=== PATIENT | female | born 1965 | race Caucasian/White ===

== ENCOUNTER → 2020-03-25 10:25 | Outpatient (CLI) | payer OTHER, SELFPAY ==
--- NOTE | ~2020-03-25 | MM_ITS ---
EXAMINATION: MM screening [facility] w artur HISTORY: Screening TECHNIQUE: Craniocaudal and mediolateral oblique 3-D tomosynthesis images were obtained and synthetic 2-D images were generated. CAD analysis was submitted and interpreted. COMPARISON: Comparison to multiple prior studies sequentially, with oldest reviewed study dated 03/26. BREAST PARENCHYMAL COMPOSITION: There are scattered areas of fibroglandular density. FINDINGS: There is no evidence of suspicious mass, calcification, or architectural distortion to sugg est malignancy in either breast. There has been no suspicious interval change. IMPRESSION: 1. No mammographic evidence of malignancy. 2. Recommend routine screening mammography in one year. BI-RADS Category 1: Negative Reviewed, dictated and finalized at location A.
== END ==
PROVIDERS: PCP Family Medicine; Visit Provider Obstetrics & Gynecology Gynecology
DX: Z12.31 Encounter for screening mammogram for malignant neoplasm of breast (principal)
CPT/HCPCS: 77063; 77067

== ENCOUNTER → 2021-04-01 13:42 | Outpatient (CLI) | payer OTHER, SELFPAY ==
--- NOTE | ~2021-04-01 | MM_ITS ---
EXAMINATION: MM screening [facility] BI w artur HISTORY: Screening mammogram TECHNIQUE: Craniocaudal and mediolateral oblique 3-D tomosynthesis images were obtained and synthetic 2-D images were generated. CAD analysis was submitted and interpreted. COMPARISON: 03/25/2020, 12/16/2018, 12/01/2018 BREAST PARENCHYMAL COMPOSITION: There are scattered areas of fibroglandular density. FINDINGS: There is no evidence of suspicious mass, calcification, or architectural distortion to sugg est malignancy in either breast. There has been no suspicious interval change. IMPRESSION: 1. No mammographic evidence of malignancy. 2. Recommend routine screening mammography in one year. BI-RADS Category 1: Negative Reviewed, dictated and finalized at location A.
== END ==
PROVIDERS: PCP Internal Medicine; Visit Provider Obstetrics & Gynecology
DX: Z12.31 Encounter for screening mammogram for malignant neoplasm of breast (principal)
CPT/HCPCS: 77063; 77067

== ENCOUNTER 2022-01-05 10:20 | Outpatient (CLI) | payer OTHER, SELFPAY ==
--- NOTE | ~2022-01-05 | XR_ITS ---
EXAMINATION: XR toe 1st LT min 2V DATE: 01/05/2022 11:28 INDICATION: Gout TECHNIQUE: Dorsal plantar, lateral and oblique views of the left great toe were obtained. COMPARISON: 05/02/2012 FINDINGS: Alignment is normal. No fracture. Interval progression of now mild to moderate osteoarthritis at the first metatarsophalangeal joint. Mild osteoarthritis at a few of the tarsal metatarsal and interphala ngeal joints. No erosions identified. Soft tissues are unremarkable. IMPRESSION: Progression of now mild to moderate osteoarthritis at the first metatarsophalangeal joint. No erosion s. Reviewed, dictated and finalized at location B. IMPRESSION: Progression of now mild to moderate osteoarthritis at the first metatarsophalan geal joint. No erosions.
--- NOTE | ~2022-01-05 | XR_ITS ---
EXAMINATION: XR chest 2V 01/05/2022 11:28 INDICATION: Shortness of breath. High cholesterol. PROCEDURE: 2 view chest COMPARISON: No prior studies for comparison FINDINGS: The lungs are clear. The cardiomediastinal silhouette is within normal limits. There are no pleural effusions. There is no pneumothorax suspected. IMPRESSION: 1: NO ACUTE CARDIOPULMONARY DISEASE. Reviewed, dictated and finalized at location A.
== END 2022-01-05 10:21 ==
PROVIDERS: PCP Internal Medicine; Visit Provider Internal Medicine
DX: R06.02 Shortness of breath (principal); E78.00 Pure hypercholesterolemia, unspecified; M19.072 Primary osteoarthritis, left ankle and foot
CPT/HCPCS: 71046; 73660

== ENCOUNTER 2022-04-03 09:49 | Outpatient (CLI) | payer OTHER, SELFPAY ==
--- NOTE | ~2022-04-03 | MM_ITS ---
EXAMINATION: MM screening [facility] w artur HISTORY: Screening mammogram TECHNIQUE: Craniocaudal and mediolateral oblique 3-D tomosynthesis images were obtained and synthetic 2-D images were generated. CAD analysis was submitted and interpreted. COMPARISON: 04/01/2021, 10/24/2019 bilateral screening mammogram examinations BREAST PARENCHYMAL COMPOSITION: There are scattered areas of fibroglandular density. FINDINGS: There is no evidence of suspicious mass, calcification, or architectural distortion to sugg est malignancy in either breast. There has been no suspicious interval change. IMPRESSION: 1. No mammographic evidence of malignancy. 2. Recommend routine screening mammography in one year. BI-RADS Category 1: Negative Reviewed, dictated and finalized at location A.
== END 2022-04-03 09:50 ==
PROVIDERS: PCP Student in an Organized Health Care Education/Training Program; Visit Provider Obstetrics & Gynecology Gynecology
DX: Z12.31 Encounter for screening mammogram for malignant neoplasm of breast (principal)
CPT/HCPCS: 77063; 77067

== ENCOUNTER 2022-05-10 14:25 | Observation (INO) | payer OTHER, SELFPAY ==
[2022-05-10] VITALS (31 sets, daily range): BP systolic 84–111; BP diastolic 57–87; PULSE 87–116; RESP 9–26; TEMP 36.6–36.8; O2SAT 96–99; BMI 27.8
--- NOTE | ~2022-05-10 | XR_ITS ---
XR chest 1V portable DATE: 05/10/2022 15:00 INDICATION: Left chest pain radiating to back. Chills, body aches. TECHNIQUE: Portable AP chest on 05/10/2022 at 1455 hours COMPARISON: 01/05/2022 portable AP chest FINDINGS: Patchy left lower lung infiltrate, new since 01/05/2022. The lungs otherwise appear clear. No pleural effusion or pulmonary vascular congestion or pneumothorax. Normal heart size. No hilar or mediastinal enlargement. Diffuse osteopenia. IMPRESSION: Mild patchy left lower lung infiltrate Reviewed, dictated and finalized at location A.
--- NOTE | 2022-05-10 14:28 | ECG_ITS ---
Measurements Intervals [place] Rate: 111 P: 2 UT: 150 QRS: -17 QRSD: 90 T: 261 QT: 297 QTc: 404 Interpretive Statements SINUS TACHYCARDIA VENTRICULAR PREMATURE COMPLEX DELAYED PRECORDIAL R/S TRANSITION ST-T WAVE ABNORMALITY IN ANTEROLAT/INF LEADS- CONSIDER ISCHEMIA ABNORMAL ECG NO PREVIOUS ECG AVAILABLE FOR COMPARISON Electronically Signed On 05-10-2022 18:51:50 CDT by Hugo Mendez D.O.
--- NOTE | 2022-05-10 14:53 | ECG_ITS ---
Measurements Intervals [place] Rate: 105 P: 9 SC: 154 QRS: -1 QRSD: 85 T: -64 QT: 296 QTc: 392 Interpretive Statements SINUS TACHYCARDIA ST-T WAVE ABNORMALITY IN ANT/INF LEADS- CONSIDER ISCHEMIA ABNORMAL ECG COMPARED TO ECG 05/10/2022 14:32:51 NO SIGNIFICANT CHANGES Electronically Signed On 05-10-2022 18:53:05 CDT by Hugo Mendez D.O.
[2022-05-10 15:00] LABS: Basophils Absolute Auto 0.1 K/mm3 (0.0-0.1); Basophils Percent Auto 0.7 % (0.2-1.2); Eosinophils Absolute Auto 0.5 K/mm3 (0-0.3); Eosinophils Percent Auto 3.4 % (0-4.4); Hematocrit 41.4 % (37.0-47.0); Hemoglobin 13.5 g/dL (12.0-15.0); Immature Granulocyte Absolute 0.09 K/mm3 (0.00-0.031); Immature Granulocyte Percent A 0.7 % (0-0.5); Lymphocytes Absolute Auto 1.63 K/mm3 (0.9-3.2); Lymphocytes Percent Auto 11.8 % (18.3-44.2); Mean Corpuscular HGB Conc 32.6 g/dl (32-36); Mean Corpuscular Hemoglobin 27.3 pg (26-34); Mean Corpuscular Volume 83.8 fl (80-100); Mean Platelet Volume 10.8 fl (7.4-10.4); Monocytes Absolute Auto 0.8 K/mm3 (0.1-0.6); Monocytes Percent Auto 6.1 % (2.6-8.5); Neutrophils Absolute Auto 10.7 K/mm3 (1.3-6.7); Neutrophils Percent Auto 77.3 % (45.5-73.1); Platelet Count Result 150 k/mm3 (150-375); Red Blood Count 4.94 M/mm3 (4.2-5.4); Red Cell Distribution Width 13.9 % (11.5-14.5); White Blood Count 13.8 K/mm3 (4.5-10.0)
[2022-05-10 15:01] LABS: INR 1.2; Prothrombin Time 14.9 Seconds (11.1-14.7)
[2022-05-10 15:02] LABS: Partial Thromboplastin Time 29.9 SECONDS (22.3-36.8)
[2022-05-10 15:05] LABS: Alanine Aminotransferase 21 U/L (6-35); Albumin Level 4.7 g/dL (3.5-5.1); Alkaline Phosphatase 98 U/L (38-126); Anion Gap 11 mmol/L (8-16); Aspartate Amino Transferase 19 U/L (14-36); Bilirubin,Total 0.6 mg/dL (0.2-1.3); Blood Urea Nitrogen 13 mg/dL (7-17); Calcium 9.1 mg/dL (8.4-10.2); Carbon Dioxide 22 mmol/L (22-30); Chloride 104 mmol/L (98-107); Estimated CRCL calculation 63 ml/min; Estimated Glomerular Filt Rate > 60; Glucose 137 mg/dL (65-110); Lipase 150 U/L (23-300); Potassium 3.9 mmol/L (3.4-5.0); Sodium 137 mmol/L (137-145)
--- NOTE | 2022-05-10 15:10 | ED.GENADULT ---
HPI - General Adult General Chief complaint: Chest Pain Stated complaint: chest pain that began yesterday evening Time Seen by Provider: 05/10/22 14:45 History of Present Illness HPI narrative: This is a 57-year-old female present to ED with a chief complaint of chest pain. Patient says the pain started last night around 6:00 p.m.. She describes it as a pressure underneath her left breast which radiates to her back and right jaw. She says that it is comes and goes in intensity. It has been improving. She has never experienced pain like this before. There are no exacerbating or alleviating factors. She denies vomiting or diaphoresis or exertional component. She also notes that she started to have flu-like symptoms including fever and chills and generally feeling unwell yesterday. She has had a recent COVID exposure. She denies lower extremity edema or history of heart failure. Related Data Home Medications Medication Instructions Recorded Confirmed albuterol sulfate 90 mcg/actuation 1 inhalation inhalation Q4H 06/28/19 02/09/22 aerosol inhaler (ProAir HFA) magnesium 200 mg tablet 400 mg PO BID 07/05/20 02/09/22 cholecalciferol (vitamin D3) 10 10 mcg PO WEEKLY 02/09/22 02/09/22 mcg (400 unit) capsule evolocumab 140 mg/mL subcutaneous 140 mg subcut WEEKLY 02/09/22 02/09/22 pen injector (Repemelina Vásquez) Allergies Allergy/AdvReac Type Severity Reaction Status Date / Time No Known Allergies Allergy Verified 05/10/22 15:38 Review of Systems Review of Systems: CONSTITUTIONAL: Denies night sweats. EYES: No eye pain ENT: Denies rhinorrhea CARDIOVASCULAR: Denies palpitations RESPIRATORY: Denies hemoptysis GASTROINTESTINAL: Denies hematemesis GENITOURINARY: Denies hematuria. SKIN: Denies rash MUSCULOSKELETAL: Denies myalgia. NEUROLOGIC: Denies weakness. PSYCHIATRIC: Denies delusions [facility] Past Medical History Medical History (Updated 05/10/22 @ 16:32 by Barbara Willams PA-C) Anxiety Hypothyroidism Migraine Mixed hyperlipidemia Uterine polyp Surgical History Surgical History (Updated 05/10/22 @ 16:30 by Barbara Willams PA-C) History of hernia repair Family History Family History Father Family history of mental disorder Family history of malignant neoplasm of urinary bladder Sibling Family history of mental disorder Mother Family history of cardiovascular disease Family history of Alzheimer's disease Grandparent Family history of cardiovascular disease Cerebrovascular accident Other Hypertension Social History Social History Social History: Surrogate medical decision maker: Jose Yuen, spouse. Code status: Full code. Smoking packs per day: 0.5 Smoking cigarettes per day: 10.0 Years smoked: 8 Smoking pack-years: 4.00 Smoking status: Never smoker Second hand tobacco smoke exposure: No Smoking end date: 08/16/91 Alcohol intake: never Additional living arrangements comments: Lives in [place]. 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 Exam Narrative: APPEARANCE: patient is sitting in bed. She appears slightly uncomfortable. Head atraumatic. EYES: PERRLA/EOMI, NOSE: Normal no drainage NECK: Supple, Trachea midline RESPIRATORY: CTAB, No increased work of breathing. CARDIOVASCULAR: S1S2 appreciated , no peripheral edema ABDOMINAL: Soft, nontender, nondistended, MUSCULOSKELETAl: No obvious deformities NEURO: Alert. Moving 4/4 extremities SKIN:: Warm, dry. Normal color PSYCHIATRIC: Normal affect Course Vital Signs Vital signs: Vital Signs Temperature 98.2 F 05/10/22 14:32 Pulse Rate 114 H 05/10/22 14:32 Respiratory Rate 18 05/10/22 14:32 Blood Pressure 105/71 05/10/22 14:32 Pulse Oximetry 97 05/10/22 14:32 Oxygen Delivery Room Air 05/10/22 14:32
[2022-05-10 15:16] LABS: Troponin I < 0.012 ng/mL (0.000-0.034)
[2022-05-10] MEDS: ASPIRIN 81 MG CHEWABLE TABLET 324 MG PO (15:21)
[2022-05-10 15:40] LABS: Alanine Aminotransferase 21 U/L (6-35); Albumin Level 4.5 g/dL (3.5-5.1); Alkaline Phosphatase 85 U/L (38-126); Anion Gap 10 mmol/L (8-16); Aspartate Amino Transferase 21 U/L (14-36); Bilirubin,Total 0.7 mg/dL (0.2-1.3); Blood Urea Nitrogen 14 mg/dL (7-17); Carbon Dioxide 22 mmol/L (22-30); Chloride 105 mmol/L (98-107); Estimated CRCL calculation 72 ml/min; Estimated Glomerular Filt Rate > 60; Glucose 130 mg/dL (65-110); Lipase 108 U/L (23-300); Sodium 137 mmol/L (137-145)
[2022-05-10 15:48] LABS: NT Pro B Type Natriuretic Pept 532 pg/mL (5-100); Troponin I < 0.012 ng/mL (0.000-0.034)
[2022-05-10 16:01] LABS: SARS-CoV-2 RNA PCR Negative
--- NOTE | 2022-05-10 16:35 | PC.NURSE ---
VRBO ZOFRAN 4MG PER ERP
[2022-05-10] MEDS: ONDANSETRON INJ 4 MG/2 ML VIAL IV PUSH (16:42)
--- NOTE | 2022-05-10 16:45 | PM.IMHP ---
H&P: HPI History of Present Illness Date/Time: 05/10/22 16:45 <Barbara Willams PA-C - Last Filed: 05/10/22 22:18> Chief Complaint: Chest pain. <Barbara Willams PA-C - Last Filed: 05/10/22 22:18> Narrative: This is a pleasant 57-year-old female with dyslipidemia and hypothyroidism who presented to the ED from home for evaluation of chest pain which started last evening at 18:00. She describes a pressure like discomfort just below the left breast. And radiates somewhat into the back and to the right side of her jaw. It seems to come and go without pattern and she has not noticed any significant aggravating or alleviating factors. With further questioning, she has not felt well since yesterday with generalized malaise, chills, subjective fever, decreased appetite, slight nausea, and some loose stools. She was afebrile on arrival to the emergency department. Her initial troponin was normal though EKG did demonstrate ST and T-wave abnormalities in the anterior lateral and inferior leads concerning for ischemia. Per protocol she was given aspirin 324 milligrams and a repeat EKG thereafter demonstrated some improvement in ST segment changes. Chest x-ray showed mild patchy left lower lobe infiltrate. Last week she was on a camping trip and another camper had COVID however she tested negative for SARS-CoV-2 by PCR. She is being admitted in this setting for IV antibiotics and consultation with Cardiology given her abnormal EKG. She has no history of coronary artery disease but did see Dr. Mendez at one point in time for evaluation of what sounds like frequent PVCs. She has not had exertional chest pain however she reports getting winded when walking up the hill by her home, something that she would probably not typically cause her to feel short of breath. <Barbara Willams PA-C - Last Filed: 05/10/22 22:18> Review of Systems Review of Systems: Twelve systems were reviewed. No headache. She had a sore throat last week but that has resolved. No significant sinus congestion. She has not had any exertional chest pain. No syncope or near syncope. No sweats. She has had some nausea but no vomiting. She is intolerant to statins and is now on Repatha. With statins and with the Repatha she has brain fog and difficulties concentrating though that seems less with Repatha. Except as documented, all other systems were reviewed and negative. <Barbara Willams PA-C - Last Filed: 05/10/22 22:18> [facility] Past Medical History Medical History: Medical History (Updated 05/10/22 @ 16:32 by Barbara Willams PA-C) Anxiety Hypothyroidism Migraine Mixed hyperlipidemia Uterine polyp <Barbara Willams PA-C - Last Filed: 05/10/22 22:18> Surgical History Surgical History: Surgical History (Updated 05/10/22 @ 16:30 by Barbara Willams PA-C) History of hernia repair <Barbara Willams PA-C - Last Filed: 05/10/22 22:18> Family History Family History: Family History Father Family history of mental disorder Family history of malignant neoplasm of urinary bladder Sibling Family history of mental disorder Mother Family history of cardiovascular disease Family history of Alzheimer's disease Grandparent Family history of cardiovascular disease Cerebrovascular accident Other Hypertension <Barbara Willams PA-C - Last Filed: 05/10/22 22:18> Social History Social History: Social History (Updated 05/10/22 @ 16:51 by Barbara Willasm PA-C) Social History: Surrogate medical decision maker: Jose Harveyjames, spouse. Code status: Full code. Smoking packs per day: 0.5 Smoking cigarettes per day: 10.0 Years smoked: 7 Smoking pack-years: 3.50 Smoking status: Former smoker Tobacco type: cigarettes Second hand tobacco smoke exposure: No Smoking end date: 08/16/91 Alcohol intake: never Substance use: never Additional l
[2022-05-10 17:49] LABS: Appearance Urine Clear (Clear); Bilirubin Urine Negative (Negative); Blood Urine Negative (Negative); Color Urine Yellow (Yellow); Glucose Urine UA Negative (Negative); Ketones Urine Negative (Negative); Leukocyte Esterase Ur 2+ LEU/UL (Negative); Nitrate Urine Negative (Negative); Protein Urine Trace mg/dL (Negative); Specific Grav Ur >= 1.030 (1.001-1.035); Urobilinogen Urine 0.2 mg/dL (<2.0)
[2022-05-10 17:53] LABS: Add Urine Microscopic? YES; Bacteria Urine Trace /hpf; Mucus Urine Rare /lpf; Squamous Epithelial Cell Urine Few /hpf (Few); WBC Urine 16-20 /hpf
[2022-05-10 18:29] LABS: Troponin I < 0.012 ng/mL (0.000-0.034)
--- NOTE | 2022-05-10 20:34 | PM.CNCAR ---
Assessment and Plan Assessment and plan (1) Left lower lobe pneumonia: Code(s): J18.9 - Pneumonia, unspecified organism Status: Acute Assessment and Plan: On antibiotics as per hospitalist. (2) Abnormal EKG: Code(s): R94.31 - Abnormal electrocardiogram [ECG] [EKG] Status: Acute Assessment and Plan: ST abnormality. Troponin unremarkable x 2 sets. Obtain echo. (3) Mixed hyperlipidemia: Code(s): E78.2 - Mixed hyperlipidemia Status: Acute Assessment and Plan: On Repatha injections. History of Present Illness History of Present Illness Consult date/time: 05/10/22 20:34 Consult reason: Other (abnormal ekg) Reason For Visit: pneumonia Narrative: 57 yr old woman who is my regular cardiology patient presented to ER with malaise. She has a history of dyslipidemia (intolerant of Simvastatin due to mental fogginess and some myalgia), anxiety. Reports for last few days she had subjective fevers/chills, muscle aches, weakness. Denies cough, chest pain, sob, orthopnea, PND, edema, dizziness. Reports she can walk 3 miles without any problems. Walking up a flight of stairs does cause HARVEY. Rare palpitations. Cardiovascular Procedures Echo/MUGA:: 04/22/21 Echo: EF 65%, grade I diastolic dysfunction , trace MR. Electrophysiology:: 02/09/22 EKG:Sinus rhythm with PVC's, borderline T wave in ant/inf leads. Review of Systems Review of Systems: All systems reviewed & are unremarkable except as noted in HPI and below Constitutional: Constitutional: Reports as per HPI, Reports chills, Reports fatigue, Reports fever(s) and Reports malaise Cardiovascular: Cardiovascular: Reports as per HPI, Denies chest pain, Denies irregular heart rhythm, Denies leg edema and Denies lightheadedness Respiratory: Respiratory: Reports as per HPI and Denies dyspnea Gastrointestinal: Gastrointestinal: Reports as per HPI and Denies abdominal pain Genitourinary: Genitourinary: Reports as per HPI and Denies dysuria Musculoskeletal: Musculoskeletal: Reports as per HPI Neurologic: Reports as per HPI, Denies dizziness and Denies syncope [facility] Past Medical History Medical History (Updated 05/10/22 @ 16:32 by Barbara Willams PA-C) Anxiety Hypothyroidism Migraine Mixed hyperlipidemia Uterine polyp Surgical History Surgical History (Updated 05/10/22 @ 16:30 by Barbara Willams PA-C) History of hernia repair Family History Family History Father Family history of mental disorder Family history of malignant neoplasm of urinary bladder Sibling Family history of mental disorder Mother Family history of cardiovascular disease Family history of Alzheimer's disease Grandparent Family history of cardiovascular disease Cerebrovascular accident Other Hypertension Social History Social History (Updated 05/10/22 @ 16:51 by Barbara Willams PA-C) Social History: Surrogate medical decision maker: Jose Yuen, spouse. Code status: Full code. Smoking packs per day: 0.5 Smoking cigarettes per day: 10.0 Years smoked: 8 Smoking pack-years: 4.00 Smoking status: Never smoker Second hand tobacco smoke exposure: No Smoking end date: 08/16/91 Alcohol intake: never Additional living arrangements comments: Lives in [place] with and a cat. 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 Meds Home Medications and Allergies Home Medications Medication Instructions Recorded Confirmed Type albuterol sulfate 90 mcg/actuation 1 inhalation inhalation Q4H 06/28/19 02/09/22 History aerosol inhaler (ProAir HFA) levothyroxine 25 mcg tablet 25 mcg PO DAILY #90 tabs 04/08/20 02/09/22 Rx magnesium 200 mg tablet 400 mg PO BID 07/05/20 02/09/22 History zolmitriptan 5 mg tablet (Zomig) 5 mg PO .COMPLEX #54 tabs 11/04/20 02/09/22 Rx cholecalciferol (vitam
--- NOTE | 2022-05-10 21:52 | ADMGEN ---
This patient, Liss Yuen, was admitted to IMU Room 206-01 on 05/10/22 at 1999. Patient/family oriented to hospital policies and general routines including ID bracelet, bed and alarms, visiting hours, pain management, procedures, bathroom and other care routines, personal items, smoking policy, room service/diet, and visiting hours. Information on how to activate the Rapid Response Team has been discussed. Patient/Family are encouraged to report perceived risks to care and to ask questions if they do not understand what they are told or what they should do.
[2022-05-10 21:58] LABS: Troponin I < 0.012 ng/mL (0.000-0.034)
[2022-05-10] MEDS: IBUPROFEN 600 MG TABLET PO (22:04)
[2022-05-11] VITALS: PULSE 78
--- NOTE | 2022-05-11 | ECHO_ITS ---
Patient Info Name: Liss Yuen Age: 57 years : 1965 Gender: Female Ht: 63 in Wt: 156 lbs BSA: 1.79 m2 HR: 72 bpm BP: 99 / 61 mmHg Technical Quality: Good Exam Date: 05/11/2022 10:31 AM Exam Location: [facility] Pulmonary Patient Status: Outpatient Admit Date: 05/10/2022 Staff Ordering Physician: Hugo Mendez DO Purchasing Administrative Assistant: Froylan Clark RDCS, RT Attending Provider: Sonia Billy MD Referring Physician: Andrea STEWART; Exam Type: CA echo doppler color flow Study Info Indications R07.9 - Chest pain, unspecified Complete two-dimensional, color flow and Doppler transthoracic echocardiogram is performed. Strain analysis performed. Summary 1. Complete two-dimensional, color flow and Doppler transthoracic echocardiogram is performed. 2. Left ventricular chamber dimension is normal. 3. Left ventricular systolic function is normal, estimated at 60-65%. 4. The left ventricular diastolic function is grade I diastolic dysfunction. 5. E/e' 5 is not elevated. 6. Global longitudinal strain is normal at -19.5%. 7. No pulmonary hypertension, estimated pulmonary arterial systolic pressure is 24 mmHg. Left Ventricle E/e' 5 is not elevated. Global longitudinal strain is normal at -19.5%. Left ventricular chamber dimension is normal. Left ventricular systolic function is normal, estimated at 60-65%. The left ventricular diastolic function is grade I diastolic dysfunction. Right Ventricle Right ventricular chamber dimension is normal. Right ventricular systolic function is normal. Left Atria Left atrial chamber dimension is normal. Right Atria Right atrial chamber dimension is normal. Aortic Valve The aortic valve is probable trileaflet. There is no aortic valve stenosis. There is no aortic valve regurgitation. Pulmonic Valve There is no pulmonic regurgitation. Mitral Valve There is no mitral valve stenosis. There is no mitral valve regurgitation. Tricuspid Valve There is no tricuspid valve regurgitation. No pulmonary hypertension, estimated pulmonary arterial systolic pressure is 24 mmHg. Pericardium/Pleural There is no pericardial effusion. Inferior Vena Cava Normal inferior vena cava with >50% collapse upon inspiration consistent with normal right atrial pressure, 5 mmHg. Aorta The aortic root size at the sinus of Valsalva is normal. Left Ventricular Outflow Tract Name Value Normal LVOT 2D LVOT Diameter 2.0 cm LVOT Doppler LVOT Peak Gradient 3 mmHg LVOT Mean Gradient 2 mmHg LVOT VTI 20 cm LVOT VTI/AV VTI Ratio 0.8 LVOT Stroke Volume 63 ml LVOT CO 4.7 l/min LVOT CI 2.6 l/min/m2 Mitral Valve Name Value Normal MV Doppler
[2022-05-11 02:00] VITALS: PULSE 64
[2022-05-11 04:00] VITALS: BP 99/61; PULSE 60; PULSE 80; RESP 18; TEMP 36.7; O2SAT 99
[2022-05-11 05:47] LABS: Anion Gap 6 mmol/L (8-16); Blood Urea Nitrogen 15 mg/dL (7-17); Calcium 8.6 mg/dL (8.4-10.2); Carbon Dioxide 27 mmol/L (22-30); Chloride 103 mmol/L (98-107); Estimated CRCL calculation 64 ml/min; Estimated Glomerular Filt Rate > 60; Glucose 111 mg/dL (65-110); Magnesium 2.5 mg/dL (1.6-2.3); Potassium 4.2 mmol/L (3.4-5.0); Sodium 136 mmol/L (137-145)
[2022-05-11 06:00] VITALS: PULSE 65
[2022-05-11] MEDS: LEVOTHYROXINE SODIUM 25 MCG TABLET PO (06:27)
--- NOTE | 2022-05-11 07:52 | PM.PNCARD ---
Progress Note: A&P Assessment and Plan (1) Left lower lobe pneumonia: Code(s): J18.9 - Pneumonia, unspecified organism Status: Acute Assessment and Plan: On antibiotics as per hospitalist. (2) Abnormal EKG: Code(s): R94.31 - Abnormal electrocardiogram [ECG] [EKG] Status: Acute Assessment and Plan: Symptoms do no suggests ACS. ST abnormality. Troponin unremarkable x 3 sets. Obtain echo. If echo is unremarkable no further cardiac workup at this time as she is being treated for pneumonia. May need outpatient stress testing. (3) Mixed hyperlipidemia: Code(s): E78.2 - Mixed hyperlipidemia Status: Acute Assessment and Plan: On Repatha injections. Subjective Date/time seen: 05/11/22 07:52 Interval history: Reports sore throat, headache and cough. No chest pain or sob. Exam Const: General: cooperative, healthy appearing and comfortable Resp: Auscultation: clear to auscultation bilaterally, no crackles, no rales, no rhonchi and no wheezes Cardio: Jugular venous distension: no JVD Rate: regular rate Rhythm: regular rhythm Heart sounds: no murmurs Peripheral pulses: dorsalis pedis present GI: GI Palp: No abdominal tenderness and Yes Soft to palpation Neuro: General: oriented to person, oriented to place and oriented to time Extrem: Right lower extremity: no edema Left lower extremity: no edema Objective Data Vital Signs Vital Signs: Vital Signs - 24 hr 05/10/22 14:32 05/10/22 15:09 05/10/22 15:16 Temperature 98.2 F Pulse Rate 114 H 110 H Respiratory Rate 18 Blood Pressure 105/71 Pulse Oximetry 97 96 Oxygen Delivery Room Air Room Air 05/10/22 15:18 05/10/22 14:49 05/10/22 14:50 Temperature Pulse Rate 113 H 115 H Respiratory Rate 19 15 Blood Pressure 111/87 Pulse Oximetry 96 Oxygen Delivery Room Air 05/10/22 15:00 05/10/22 15:01 05/10/22 15:15 Temperature Pulse Rate 107 H 116 H 109 H Respiratory Rate 18 26 H 12 Blood Pressure 108/86 111/79 Pulse Oximetry Oxygen Delivery 05/10/22 15:16 05/10/22 15:30 05/10/22 15:31 Temperature Pulse Rate 111 H 104 H 106 H Respiratory Rate 17 9 L 13 Blood Pressure 106/79 Pulse Oximetry Oxygen Delivery 05/10/22 15:45 05/10/22 15:46 05/10/22 16:00 Temperature Pulse Rate 106 H 106 H 102 H Respiratory Rate 12 12 9 L Blood Pressure 106/74 106/76 Pulse Oximetry Oxygen Delivery 05/10/22 16:01 05/10/22 16:15 05/10/22 16:16 Temperature Pulse Rate 103 H 100 100 Respiratory Rate 10 L 17 24 H Blood Pressure 103/73 Pulse Oximetry 96 Oxygen Delivery 05/10/22 16:30 05/10/22 16:45 05/10/22 17:00 Temperature Pulse Rate 99 101 H 93 Respiratory Rate 15 18 16 Blood Pressure 98/68 L 89/70 L 84/68 L Pulse Oximetry 97 98 97 Oxygen Delivery 05/10/22 17:16 05/10/22 17:45 05/10/22 18:15 Temperature Pulse Rate 93 101 H 91 Respiratory Rate 9 L 13 25 H Blood Pressure 100/72 95/68 L 92/62 L Pulse Oximetry 98 98 98 Oxygen Delivery 05/10/22 18:30 05/10/22 18:45 05/10/22 19:00 Temperature Pulse Rate 96 93 92 Respiratory Rate 16 13 15 Blood Pressure 90/65 L 92/62 L 100/85 Pulse Oximetry 98 96 Oxygen Delivery 05/10/22 19:01 05/10/22 19:24 05/10/22 20:00 Temperature 97.9 F Pulse Rate 95 92 96 Respiratory Rate 16 17 18 Blood Pressure 93/71 L Pulse Oximetry 98 Oxygen Delivery 05/10/22 20:00 05/10/22 23:26 05/10/22 22:00 Temperature 98.0 F Pulse Rate 87 89 Respiratory Rate 18 Blood Pressure 92/57 L Pulse Oximetry 99 Oxygen Delivery Room Air 05/10/22 20:00 05/11/22 00:00 05/11/22 00:00 Temperature Pulse Rate 95 78 Respiratory Rate Blood Pressure Pulse Oximetry Oxygen Delivery Room Air 05/11/22 02:00 05/11/22 04:00 05/11/22 04:00 Temperature 98.0 F Pulse Rate 64 80 60 Respiratory Rate 18 Blood Pressure 99/61 L Pulse Oximetry 99 Oxygen De
[2022-05-11 08:00] VITALS: BP 107/76; PULSE 66; PULSE 69; RESP 16; TEMP 36.5; O2SAT 97
[2022-05-11] MEDS: PARoxetine 5 MG TABLET PO (09:31)
[2022-05-11] MEDS: MAGNESIUM OXIDE 400 MG TABLET PO (09:31)
[2022-05-11] MEDS: IBUPROFEN 400 MG TABLET 800 MG PO (11:19)
--- NOTE | 2022-05-11 11:46 | PM.DS ---
DS: Admitting Diagnosis Discharge Date May 11, 2022 Admitting Diagnosis pneumonia DS: Discharge Diagnosis Discharge Diagnosis (1) Chest pain: Code(s): R07.9 - Chest pain, unspecified Status: Acute Assessment and Plan: no further workup needed (2) Abnormal EKG: Code(s): R94.31 - Abnormal electrocardiogram [ECG] [EKG] Status: Acute Assessment and Plan: Plan is as detailed above. (3) Left lower lobe pneumonia: Code(s): J18.9 - Pneumonia, unspecified organism Status: Acute Assessment and Plan: She has been started on azithromycin ceftriaxone for community-acquired pneumonia. Sputum to be attempted for culture. Check urinary antigens. SARS-CoV-2 by PCR was negative. (4) Mixed hyperlipidemia: Code(s): E78.2 - Mixed hyperlipidemia Status: Acute Assessment and Plan: She is on Repatha, last injection was several days ago. (5) Hypothyroidism: Qualifiers: Hypothyroidism type: unspecified Qualified Code(s): E03.9 - Hypothyroidism, unspecified Code(s): E03.9 - Hypothyroidism, unspecified Status: Acute Assessment and Plan: Continue levothyroxine and check TSH. (6) Anxiety: Code(s): F41.9 - Anxiety disorder, unspecified Status: Acute DS: Summary Hospital Course Hospital Course: patient was admitted for chest pressure and pneumonia. Echocardiogram was read as negative no further workup was indicated by Cardiology. Patient will be sent home on Omnicef. Time Spent with Patient Time attestation: Total time spent providing and/or coordinating discharge services: Exam Narrative: General: Mildly ill but nontoxic-appearing female sitting up in bed. Weight: 71.2 kilograms. BMI: 27.8. HEENT: Wearing glasses. PERRL, EOMI. Sclera anicteric. Tacky mucous membranes. Neck: Supple. No lymphadenopathy or JVD. Respiratory: Respirations are nonlabored and she is speaking in full sentences. Occasional dry cough. Bronchial breath sounds at the left base. Cardiovascular: Regular rate and rhythm with S1-S2. Chest: No tenderness to palpation over the chest wall. Gastrointestinal: Abdomen is soft, nontender, and nondistended with positive bowel sounds. Skin: Warm and dry. No rash or lesions on limited exam. Extremities: No cyanosis, clubbing, or edema. Radial and pedal pulses intact. No palpable knots or cords. Negative Aung sign bilaterally. Neurological: Alert. Cranial nerves 2-12 are grossly intact. No gross focal deficits to casual conversation. Psychiatric: Pleasant and cooperative with normal mood and affect. Judgment and insight intact. DS: Data Data Completed and Pending Labs on day of discharge: Labs from last 24 hours 05/11/22 05/11/22 05/10/22 04:28 04:28 23:07 WBC RBC Hgb Hct MCV MCH MCHC RDW Plt Count MPV Immature Gran % (Auto) Neut % (Auto) Lymph % (Auto) [place] % (Auto) Eos % (Auto) Baso % (Auto) Lymph # (Auto) [place] # (Auto) Eos # (Auto) Baso # (Auto) Abs Immat Gran (auto) Absolute Neuts (auto) Absolute Nucleated RBC Nucleated RBC % % Immature Plt Fraction PT INR APTT D-Dimer Sodium 136 L Potassium 4.2 Chloride 103 Carbon Dioxide 27 Anion Gap 6 L BUN 15 Creatinine 0.80 Estim Creat Clear Calc 64 Estimated GFR > 60 Glucose 111 H Calcium 8.6 Magnesium 2.5 H Total Bilirubin AST ALT Alkaline Phosphatase Troponin I NT-Pro-B Natriuret Pep Total Protein Albumin Lipase TSH (Reflex) 1.410 Urine Color Urine Appearance Urine pH Ur Specific [place] Urine Protein Urine Glucose (UA) Urine Ketones Ur Blood (Man) Urine Nitrate Urine Bilirubin Urine Urobilinogen Leukocyte Esterase Rfl Urine RBC Urine WBC Ur Squamous Epith Cells Urine Bacteria Ur
[2022-05-11 12:00] VITALS: BP 100/75; PULSE 73; RESP 16; TEMP 36.9; O2SAT 98
[2022-05-13 16:03] LABS: Pneumococcal Antigen Urine Not Detected (Not Detected)
[2022-05-14 16:43] LABS: Legionella pneumophila Ag Ur Not Detected (Not Detected)
[2022-05-14 17:50] LABS: Mycoplasma IgM Antibody Titer 37 U/mL (<770)
== END 2022-05-11 12:28 | disposition home or self-care (01) ==
LOC: ANHED 16:34 → ANHIMU 19:50
PROVIDERS: Emergency Medicine; Physician Assistant; Admitting Provider Family Medicine; Emergency Provider Emergency Medicine; PCP Student in an Organized Health Care Education/Training Program; Visit Provider Chiropractor
DX: J18.9 Pneumonia, unspecified organism (principal); R07.9 Chest pain, unspecified; R94.31 Abnormal electrocardiogram [ECG] [EKG]; E78.2 Mixed hyperlipidemia; E03.9 Hypothyroidism, unspecified; F41.9 Anxiety disorder, unspecified; Z87.891 Personal history of nicotine dependence; Z20.822 Contact with and (suspected) exposure to COVID-19; Z79.51 Long term (current) use of inhaled steroids; Z79.899 Other long term (current) drug therapy
CPT/HCPCS: 36415; 71045; 80048; 80053; 81001; 83690; 83735; 83880; 84443; 84484; 85025; 85380; 85610; 85730; 86738; 87086; 87088; 87449; 87899; 93005; 93306; 96374; 96375; 99285; A9270; C9803; G0378; J0456; J0696; J2405; U0003; U0005

== ENCOUNTER 2022-06-18 10:11 | Outpatient (CLI) | payer OTHER, SELFPAY ==
--- NOTE | ~2022-06-18 | DEXA_ITS ---
Bone Density Report Name: ALISSA PEREIRA Age: 57 Sex: Female Ethnicity: White Date of : 1965 Indication: postmenopausal; screening for osteoporosis; Referring Provider: WILLY, GINNY Study: Bone densitometry was performed. Exam Date: June 18, 2022 Accession number: [id number] Bone Density: Region BMD T-score Z-score Classification AP Spine (L1-L4) 0.919 -1.2 0.1 Osteopenia Femoral Neck (Left) 0.707 -1.3 -0.1 Osteopenia Total Hip (Left) 0.857 -0.7 0.1 Normal Femoral Neck (Right) 0.708 -1.3 -0.1 Osteopenia Total Hip (Right) 0.837 -0.9 -0.1 Normal Total Hip Mean 0.847 -0.8 0.0 Normal World Health Organization criteria for BMD impression classify patients as: Normal (T-score at or above -1.0), Osteopenia (T-score between -1.0 and -2.5), or Osteoporosis (T-score at or below -2.5). 10-year Fracture Risk(1): Major Osteoporotic Fracture 6.8% Hip Fracture 0.5% Reported Risk Factors: [place] (), Neck BMD=0.708, BMI=28.4 (1) FRAX(R) Version 3.08. Fracture probability calculated for an untreated patient. Fracture probability may be lower if the patient has received treatment. Previous Exams: Region Exam Age BMD T-score BMD Change BMD Change Date g/cm2 vs Baseline vs Previous AP Spine(L1-L4) 06/18/2022 57 0.919 -1.2 -0.042* -0.042* 12/01/2018 53 0.962 -0.8 Total Hip(Left) 06/18/2022 57 0.857 -0.7 -0.010 -0.010 12/01/2018 53 0.867 -0.6 Total Hip(Right) 06/18/2022 57 0.837 -0.9 -0.032* -0.032* 12/01/2018 53 0.869 -0.6 *Denotes significance at 95% confidence level, LSC for AP Spine = 0.022 g/cm2, LSC for Total Hip = 0.027 g/cm2 Clinical Information Provided by Patient: Has used the following medications: Vitamin D, Calcium Patient maximum height was 63 Menopause Age: 52 No regular weight bearing exercise Drinks caffeinated beverages Onset of menses at age 14 Number of children 0 Impression: The patient has low bone mass, based on the Left Femoral Neck T-score. The patient has an estimated ten-year risk of hip fracture of 0.5% and an estimated ten-year risk of major fracture of 6.8%, based on the WHO FRAX algorithm. The BMD for the AP Spine(L1-L4) decreased, changing by -0.042 since the last DXA exam. The BMD for the Total Hip(Right) decreased, changing by -0.032 since the last DXA exam. Discussion: BONE DENSITY IS LOW AT ONE OR MORE SKELETAL SITES.
== END 2022-06-18 10:12 ==
PROVIDERS: PCP Student in an Organized Health Care Education/Training Program; Visit Provider Nurse Practitioner
DX: Z78.0 Asymptomatic menopausal state (principal); M85.89 Other specified disorders of bone density and structure, multiple sites
CPT/HCPCS: 77080

== ENCOUNTER 2023-06-08 12:45 | Outpatient (CLI) | payer OTHER, SELFPAY ==
--- NOTE | ~2023-06-08 | MM_ITS ---
EXAMINATION: MM screening [facility] BI w artur HISTORY: Screening mammogram TECHNIQUE: Craniocaudal and mediolateral oblique 3-D tomosynthesis images were obtained and synthetic 2-D images were generated. CAD analysis was submitted and interpreted. COMPARISON: 04/03/2022, 04/01/2021, 03/25/2020 bilateral screening mammogram examinations BREAST PARENCHYMAL COMPOSITION: There are scattered areas of fibroglandular density. FINDINGS: There is no evidence of suspicious mass, calcification, or architectural distortion to sugg est malignancy in either breast. There has been no suspicious interval change. IMPRESSION: 1. No mammographic evidence of malignancy. 2. Recommend routine screening mammography in one year. BI-RADS Category 1: Negative Reviewed, dictated and finalized at location A.
== END 2023-06-08 12:46 ==
PROVIDERS: PCP Student in an Organized Health Care Education/Training Program; Visit Provider Obstetrics & Gynecology Gynecology
DX: Z12.31 Encounter for screening mammogram for malignant neoplasm of breast (principal)
CPT/HCPCS: 77063; 77067

== ENCOUNTER 2024-06-12 07:08 | Outpatient (CLI) | payer OTHER, SELFPAY ==
--- NOTE | ~2024-06-12 | MM_ITS ---
EXAMINATION: MM screening [facility] BI w artur HISTORY: Screening mammogram TECHNIQUE: Craniocaudal and mediolateral oblique 3-D tomosynthesis images were obtained and synthetic 2-D images were generated. CAD analysis was submitted and interpreted. COMPARISON: 06/08/2023, 04/03/2022, 04/01/2021, 03/25/2020 BREAST PARENCHYMAL COMPOSITION:Not Dense. There are scattered areas of fibroglandular density. FINDINGS: Possible developing asymmetry in the slightly outer right subareolar region on CC view. Sta ble parenchymal appearance of the left breast. No suspicious microcalcifications in either breast. IMPRESSION: Possible developing asymmetry in the right subareolar region, as detailed above. Spot compression vie ws, and possibly ultrasound, are recommended for further evaluation. BI-RADS Category 0: Incomplete: Needs additional imaging evaluation. Reviewed, dictated and finalized at [facility]. IMPRESSION: Possible developing asymmetry in the right subareolar region, as detailed above . Spot compression views, and possibly ultrasound, are recommended for further evaluation. BI-RADS Category 0: Incomplete: Needs additional imaging evaluation.
== END 2024-06-12 07:09 | disposition home or self-care (01) ==
LOC: MICIMG 07:10
PROVIDERS: PCP Student in an Organized Health Care Education/Training Program; Visit Provider Nurse Practitioner
DX: Z12.31 Encounter for screening mammogram for malignant neoplasm of breast (principal)
CPT/HCPCS: 77063; 77067

== ENCOUNTER 2024-06-21 09:14 | Outpatient (CLI) | payer OTHER, SELFPAY ==
--- NOTE | ~2024-06-21 | MM_ITS ---
EXAMINATION: MM diagnostic [facility]letcher RT w artur HISTORY: Right breast asymmetry TECHNIQUE: Additional 3-D tomosynthesis images of the right breast were performed and synthetic 2-D i mages were generated. CAD analysis was submitted and interpreted. COMPARISON: 06/12/2024 BREAST PARENCHYMAL COMPOSITION:Not Dense. There are scattered areas of fibroglandular density. FINDINGS: The area of asymmetry effaces with spot compression. No persistent mass lesion or distortio n seen. No suspicious microcalcifications. IMPRESSION: No mammographic evidence for malignancy. BI-RADS Category 1: Negative Reviewed, dictated and finalized at location . ON ANALYST
== END 2024-06-21 09:15 | disposition home or self-care (01) ==
LOC: MICIMG 09:17
PROVIDERS: PCP Student in an Organized Health Care Education/Training Program; Visit Provider Obstetrics & Gynecology Gynecology
DX: R92.8 Other abnormal and inconclusive findings on diagnostic imaging of breast (principal)
CPT/HCPCS: 77061; 77065; G0279

== ENCOUNTER 2025-05-23 08:13 | Outpatient (CLI) | payer OTHER, SELFPAY ==
--- NOTE | ~2025-05-23 | DEXA_ITS ---
Bone Density Report Name: ALISSA PEREIRA Age: 60 Sex: Female Ethnicity: White Date of : 1965 Indication: osteopenia; Referring Provider: WILLY, GINNY Study: Bone densitometry was performed. Exam Date: May 23, 2025 Accession number: [id number] Bone Density: Region BMD T-score Z-score Classification AP Spine(L1-L4) 0.893 -1.4 0.0 Osteopenia Femoral Neck (Left) 0.720 -1.2 0.1 Osteopenia Total Hip (Left) 0.861 -0.7 0.3 Normal Femoral Neck (Right) 0.717 -1.2 0.1 Osteopenia Total Hip (Right) 0.844 -0.8 0.2 Normal Total Hip Mean 0.852 -0.8 0.3 Normal World Health Organization criteria for BMD impression classify patients as: Normal (T-score at or above -1.0), Osteopenia (T-score between -1.0 and -2.5), or Osteoporosis (T-score at or below -2.5). 10-year Fracture Risk(1): Major Osteoporotic Fracture 7.3% Hip Fracture 0.5% Reported Risk Factors: [place] (), Neck BMD=0.720, BMI=28.3 (1) FRAX(R) Version 3.08. Fracture probability calculated for an untreated patient. Fracture probability may be lower if the patient has received treatment. Previous Exams: -- Region Exam Age BMD T-score BMD Change BMD Change Date g/cm2 vs Baseline vs Previous -- AP Spine (L1-L4) 05/23/2025 60 0.893 -1.4 -7.2%* -2.9%* 06/18/2022 57 0.919 -1.2 -4.4%* -4.4%* 12/01/2018 53 0.962 -0.8 Total Hip(Left) 05/23/2025 60 0.861 -0.7 -0.8% 0.4% 06/18/2022 57 0.857 -0.7 -1.2% -1.2% 12/01/2018 53 0.867 -0.6 Total Hip(Right) 05/23/2025 60 0.844 -0.8 -2.9% 0.8% 06/18/2022 57 0.837 -0.9 -3.6%* -3.6%* 12/01/2018 53 0.869 -0.6 -- *Denotes significance at 95% confidence level, LSC for AP Spine = 0.022 g/cm2, LSC for Total Hip = 0.027 g/cm2 Clinical Information Provided by Patient: Has used the following medications: Vitamin D, Calcium Patient maximum height was 63 Menopause Age: 52 Drinks caffeinated beverages Onset of menses at age 14 Number of children 0 Impression: The patient has low bone mass, based on the Total Spine T-score. The patient has an estimated ten-year risk of hip fracture of 0.5% and an estimated ten-year risk of major fracture of 7.3%, based on the WHO FRAX algorithm. The BMD for the AP Spine (L1-L4) decreased, changing by -2.9% since the last DXA exam. Discussion: BONE DENSITY IS LOW AT ONE OR MORE SKELETAL SITES. This patient's lowest T-score is low at one or more skeletal sites. It meets the World Health Organization's (WHO) criteria for ?low bone mass? (T-score between -1.0 and -2.5). The patient's 10-year risk of fracture as calculated by FRAX is less than the threshold where pharmacological therapy is recommended by the National Osteoporosis Foundation (NOF). However, all treatment decisions require clinical judgment and consideration of individual patient factors, including patient preferences, comorbidities, previous drug use, risk factors not captured in the FRAX model (e.g., frailty, falls, vitamin D deficiency, increased bone turnover, interval significant decline in bone density) and possible under or overestimation of fracture risk by FRAX. The patient should follow a healthful lifestyle (good nutrition with adequate calcium and vitamin D, and appropriate weight-bearing exercise). Follow-Up: Consider repeating this study in 2 years to reassess this patient's status, or sooner if there is some new clinical indication. Reported by: JEFF on 05/23/2025 8:59:00 AM. Reviewed, dictated and finalized at location A.
== END 2025-05-23 08:14 | disposition home or self-care (01) ==
LOC: MICIMG 08:13
PROVIDERS: PCP Nurse Practitioner; Visit Provider Nurse Practitioner
DX: M85.89 Other specified disorders of bone density and structure, multiple sites (principal); Z78.0 Asymptomatic menopausal state
CPT/HCPCS: 77080

== ENCOUNTER 2025-05-25 09:43 | Outpatient (CLI) | payer OTHER, SELFPAY ==
--- NOTE | ~2025-05-25 | US_ITS ---
EXAMINATION: US soft tissue LE LT DATE: 05/25/2025 10:45 INDICATION: Lipoma of left lower extremity. TECHNIQUE: Multiple grayscale and Doppler ultrasound images of the left lower limb were obtained. COMPARISON: None FINDINGS: In the inferior left buttocks, there is a 1.4 x 1.1 x 1.0 cm hypoechoic subcutaneous mass. IMPRESSION: 1. 1.4 cm subcutaneous mass in the inferior left buttock. The differential diagnosis includes sebaceous cyst and less likely benign or malignant neoplasm. Reviewed, dictated and finalized at location E. IMPRESSION: 1. 1.4 cm subcutaneous mass in the inferior left buttock. The differential diag nosis includes sebaceous cyst and less likely benign or malignant neoplasm.
== END 2025-05-25 09:44 | disposition home or self-care (01) ==
LOC: MICIMG 09:44
PROVIDERS: PCP Student in an Organized Health Care Education/Training Program; Visit Provider Student in an Organized Health Care Education/Training Program
DX: R93.6 Abnormal findings on diagnostic imaging of limbs (principal); D17.24 Benign lipomatous neoplasm of skin and subcutaneous tissue of left leg
CPT/HCPCS: 76882

== ENCOUNTER 2025-06-14 10:04 | Outpatient (CLI) | payer OTHER, SELFPAY ==
--- NOTE | ~2025-06-14 | MM_ITS ---
EXAMINATION: MM screening fletcher BI w artur HISTORY: Screening TECHNIQUE: Craniocaudal and mediolateral oblique 3-D tomosynthesis images were obtained and synthetic 2-D images were generated. CAD analysis was submitted and interpreted. COMPARISON: Comparison to multiple prior studies sequentially, with oldest reviewed study dated . BREAST PARENCHYMAL COMPOSITION: Not dense: There are scattered areas of fibroglandular density. FINDINGS: There is no evidence of suspicious mass, calcification, or architectural distortion to suggest malignancy in either breast. There has been no suspicious interval change. IMPRESSION: 1. No mammographic evidence of malignancy. 2. Recommend routine screening mammography in one year. BI-RADS Category 1: Negative Reviewed, dictated and finalized at location B.
== END 2025-06-14 10:05 | disposition home or self-care (01) ==
LOC: MICIMG 10:05
PROVIDERS: PCP Student in an Organized Health Care Education/Training Program; Visit Provider Nurse Practitioner
DX: Z12.31 Encounter for screening mammogram for malignant neoplasm of breast (principal)
CPT/HCPCS: 77063; 77067

== ENCOUNTER 2025-06-26 00:26 | Day surgery (SDC) | payer OTHER, SELFPAY ==
[2025-06-21 09:20] VITALS: BMI 28.3
--- NOTE | 2025-06-21 09:30 | PC.NURSE ---
[facility] has started construction of its new state of the art ER which will open Spring 2026. With this, we anticipate parking may be a challenge for some our surgical patients and families. Parking spaces are limited but are available for all Surgical, obstetrics, and ER patients sharing this lot. If you arrive and find you are having a hard time finding a parking space, please note that we understand the challenges, please drive around the hospital and park near Hospital Entrance 1. When you enter this entrance, you can ask a volunteer to direct or take you back to the surgical waiting area to check in. We appreciate everyone?s understanding of these expected challenges while we build for your future. Report to the Outpatient Waiting Room, entrance under the green pavilion located off [address], at time _1100_ on date _[phone]_. Planned Procedure Time: _1200_.? Time changes happen often and if your time is changed the preop area will call you the afternoon before. - You and your visitor will be asked to self-screen and do not enter if you have any COVID symptoms. Please call surgeon if you need to reschedule. - A mask is optional within the hospital at this time. Patients may have clear liquids (water, carbonated beverages, clear teas, apple juice) until 3 hours prior to surgery with a maximum of 20 ounces. - No food from midnight until time of surgery and no smoking, or chewing tobacco (or any form of nicotine). No chewing gum, candy or mints. Take only the following medications with a SIP of water on the morning of surgery: __Take medicines as usual____ DO NOT STOP ANY OF YOUR OTHER PRESCRIPTION MEDICATIONS PRIOR TO SURGERY EXCEPT THE FOLLOWING Hold all vitamins and supplements for 3 days per anesthesiologist. Medications to discontinue per physician Date to take last dose Please no make-up, nail solomon islander, hairspray, perfume, deodorant, or body powder the day of surgery.? No jewelry (including any body piercings) or valuables the day of surgery, leave them at home.? Please take a shower or bath the night before, or the morning of, surgery with an antibacterial soap.? Wear comfortable, loose fitting clothing.? - Jewelry must be removed prior to entering the operating room.? Rings and piercings that are not removed may be cut off. - The hospital will not accept responsibility for valuables.? - Please leave all valuables, including medications, at home the day of surgery. If you are going home after surgery, a licensed cdl truck driver must drive you home.? - NO public transportation without another adult if you receive anesthesia. - We recommend that an adult stay with you for 24 hours following discharge. - We also recommend that you do not drive, make important decision, drink alcoholic beverages, or take any drugs that were not prescribed by your health care provider for at least 24 hours after your discharge time. Follow any additional instructions given to you from your surgeon. Telephone instructions given to __Liss___and asked if any additional questions and then verbalized understanding. Patient advised to call surgeon office or pre surgery nurse liaison [phone] if any additional questions.
--- NOTE | 2025-06-21 15:42 | PC.NURSE ---
[facility] has started construction of its new state of the art ER which will open Spring 2026. With this, we anticipate parking may be a challenge for some our surgical patients and families. Parking spaces are limited but are available for all Surgical, obstetrics, and ER patients sharing this lot. If you arrive and find you are having a hard time finding a parking space, please note that we understand the challenges, please drive around the hospital and park near Hospital Entrance 1. When you enter this entrance, you can ask a volunteer to direct or take you back to the surgical waiting area to check in. We appreciate everyone?s understanding of these expected challenges while we build for your future. Report to the Outpatient Waiting Room, entrance under the green pavilion located off [address], at time _1100_ on date _[phone]_. Planned Procedure Time: _1200_.? Time changes happen often and if your time is changed the preop area will call you the afternoon before. - You and your visitor will be asked to self-screen and do not enter if you have any COVID symptoms. Please call surgeon if you need to reschedule. - A mask is optional within the hospital at this time. OK for light breakfast and liquids until time of surgery. No smoking, or chewing tobacco (or any form of nicotine). No chewing gum, candy or mints. Take only the following medications with a SIP of water on the morning of surgery: __Medicines OK____ DO NOT STOP ANY OF YOUR OTHER PRESCRIPTION MEDICATIONS PRIOR TO SURGERY EXCEPT THE FOLLOWING Hold all vitamins and supplements for 3 days per anesthesiologist. Medications to discontinue per physician Date to take last dose Please no make-up, nail english, hairspray, perfume, deodorant, or body powder the day of surgery.? No jewelry (including any body piercings) or valuables the day of surgery, leave them at home.? Please take a shower or bath the night before, or the morning of, surgery with an antibacterial soap.? Wear comfortable, loose fitting clothing.? - Jewelry must be removed prior to entering the operating room.? Rings and piercings that are not removed may be cut off. - The hospital will not accept responsibility for valuables.? - Please leave all valuables, including medications, at home the day of surgery. - NO public transportation without another adult if you receive anesthesia. Follow any additional instructions given to you from your surgeon. Telephone instructions given to __Liss___and asked if any additional questions and then verbalized understanding. Patient advised to call surgeon office or pre surgery nurse liaison [phone] if any additional questions.
[2025-06-26] VITALS (8 sets, daily range): BP systolic 126–141; BP diastolic 80–86; PULSE 64–75; RESP 16; TEMP 36.6; O2SAT 94–98
--- OUTSIDE RECORDS SUMMARY | 2025-06-26 00:28 | XMS_ITS | Encounter Summary ---
Author Organization [facility] Address [address] [place] [id number] Care Team Providers Care Stage Rigger Name Role Phone Vikram Coronado DO Primary Care Provider + Encounter Details Date Type Department Care Team (Late Contact Info) Description 11/12/2023 MyChart Message Enc [facility] Family & Internal Medicine [address] [phone] Vikram Coronado DO [facility] [place] [address] Repatha Social History Tobacco Use Types Packs/Day Years Used Date Smoking Tobacco: Former Cigarettes 0.5 7 0 08/16/1983 - 08/16/1990 Smokeless Tobacco: Never Alcohol Use Standard Drinks/Week Comments Not Currently 0 (1 standard drink = 0.6 oz pur e alcohol) PHQ-2 Answer Date Recorded Patient Health Questionnaire-2 Score 0 11/01/2023 Comments No Sex and Gender Information Value Date Recorded Sex Assigned at Female 10/31/2024 8:15 AM CDT Legal Sex Female 12:21 PM CDT Gender Identity Female 10/31/2024 8:36 AM CDT Sexual Orientation Not on file documented as of this encounter Plan of Treatment Upcoming Encounters Date Type Department Care Team (Late Contact Info) Description 10/31/2025 8:20 AM CDT Office Visit [facility] Family & Internal [address] [phone] Vikram Coronado DO [address] [place] [address] documented as of this encounter Visit Diagnoses Not on filedocumented in this encounter Additional Health Concerns Infection Onset Date Last Indicated Resolved Time Respiratory Rule Out 01/03/2025 01/03/2025 025 12:35 PM CDT Assessment Noted Time PHQ-9 Depression Total Score: 7 04/14/20 22 9:18 AM CDT documented as of this encounter Care Teams Stage Rigger Relationship Specialty Start Date End Date Vikram Coronado DO [address] [place] [address] PCP - General FAMILY PRACTICE 01/27/22 documented as of this encounter
--- OUTSIDE RECORDS SUMMARY | 2025-06-26 00:28 | XMS_ITS | Encounter Summary ---
Author Organization [facility] Address [facility] [place] [address] Care Team Providers Care Hardwood Floor Layer Name Role Phone Vikram Coronado DO Primary Care Provider + Encounter Details Date Type Department Care Team (Latest Contact Info) Description 05/03/2025 Results Follow-Up [facility] Family & Internal Medicine [address] [phone] Vikram Coronado DO [address] [place] [address] VITAMIN D, 25 OH TOTAL, CBC W/DIFF AUTOMATED, COMPREHENSIVE METABOLIC PANEL, Additional followed-up results: 3 Social History Tobacco Use Types Packs/Day Years Used Date Smoking Tobacco: Former Cigarettes 0.5 7 0 08/16/1983 - 08/16/1990 Smokeless Tobacco: Never Alcohol Use Standard Drinks/Week Comments Not Currently 0 (1 standard drink = 0.6 oz pur e alcohol) PHQ-2 Answer Date Recorded Patient Health Questionnaire-2 Score 0 10/31/2024 Comments No Sex and Gender Information Value Date Recorded Sex Assigned at Female 10/31/2024 8:15 AM CDT Legal Sex Female 12:21 PM CDT Gender Identity Female 10/31/2024 8:36 AM CDT Sexual Orientation Not on file documented as of this encounter Plan of Treatment Upcoming Encounters Date Type Department Care Team ( st Contact Info) Description 10/31/2025 8:20 AM CDT Office Visit [facility] Family & Internal Medicine - [address] [phone] Vikram Coronado DO [address] [place] [id number] documented as of this encounter Visit Diagnoses Not on filedocumented in this encounter Additional Health Concerns Assessment Noted Time PHQ-9 Depression Total Score: 7 04/14/20 22 9:18 AM CDT documented as of this encounter Care Teams Hardwood Floor Layer Relationship Specialty Start Date End Date Vikram Coronado DO [address] [place] [address] PCP - General FAMILY PRACTICE 01/27/22 documented as of this encounter
--- OUTSIDE RECORDS SUMMARY | 2025-06-26 00:28 | XMS_ITS | Clinical Summary ---
Author Organization [facility], Mobile Secretary Address [address] [facility] [place] [address] Care Team Providers Care Spiral Binder Name Role Phone Unavailable Primary Care Provider Unavailabl e Source Comments [facility], Mobile Secretary,non-[facility] Affiliates and Associated Physician Practices is amultiple site organization consisting of ambulatory clinics and hospital sitesin [place], [place], [place] and [place]. This disclosure is being madepursuant to the Care Everywhere program and may not contain all information available regarding this patient. 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 Gender Identity Not on file Sexual Orientation Not on file Plan of Treatment Health Maintenance Due Date Last Done Comments COLOGUARD (AGES 45-75) - COL ON CA SCREENING 1965 COLON MONITORING 1965 COLONOSCOPY - COLON CA SCREENING 1965 CT COLONOGRAPHY - COLON CA SCREENING 1965 Colorectal Cancer Screening 1965 FIT - COLON CA SCREENING 1965 FLEX SIG - COLON CA SCREENING 1965 LIPID TESTING 1965 MAMMOGRAM 1965 HIV SCREENING 01/05/1980 HEPATITIS C SCREENING 12/31/1982 DTAP/TDAP/TD VACCINES (1 - Tdap) 01/05/1984 PAP SMEAR 1986 PNEUMOCOCCAL VACCINE 50+ (1 of 1 - PCV) 2015 ZOSTER VACCINE (1 of 2) 2015 DEPRESSION SCREENING 08/16/2024 COVID-19 VACCINE (1 - 2023-2 5 season) 2025 INFLUENZA VACCINE (#1) 2025 Respiratory Syncytial Virus (RSV) Vaccine Pt: or over 60 yrs (1 - 1-dose 75+ series) 01/05/2040 HEPATITIS B VACCINE Aged Out No longe r eligible based on patient's age to complete this topic HIB VACCINE Aged Out No longer eligi ble based on patient's age to complete this topic HPV VACCINE Aged Out No longer eligi ble based on patient's age to complete this topic MENINGOCOCCAL (Group B) VACC INE SHARED DECISION-MAKING Aged Out No longer eligibl e based on patient's age to complete this topic MENINGOCOCCAL GROUPS A/C/Y/W VACCINE Aged Out No longer eligible b ased on patient's age to complete this topic Insurance [employer]
--- OUTSIDE RECORDS SUMMARY | 2025-06-26 00:28 | XMS_ITS | Encounter Summary ---
Author Organization [facility] Address [address] [place] [id number] Care Team Providers Care Second Watch Sergeant Name Role Phone Vikram Coronado DO Primary Care Provider + Reason for Visit * Reason Comments Mammogram (SCAN) Encounter Details Date Type Department Care Team ([facility] Contact Info) Description 06/14/2025 Scan HEALTH INFO [facility] Scanned, [facility] Mammogram (SCAN) Social History Tobacco Use Types Packs/Day Years [...] Upcoming Encounters Date Type Department Care Team ([facility] Contact Info) Description 10/31/2025 8:20 AM CDT Office Visit [facility] Internal Medicine [address] [phone] Vikram Coronado DO [address] [place] [phone] documented as of this encounter Procedures Procedure Name Priority Date/Time Associated Diagnosis Comments MAMMOGRAM GENERIC (SCAN ORDER) 06/14/2025 MAMMOGRAM GENERIC (SCAN ORDER) 06/14/2025 documented in this encounter Results * MAMMOGRAM GENERIC (SCAN ORDER) (06/14/2025) Anatomical Region Laterality Modality Other 06/14/2025 [facility] Scanned SCANNING Final Resu lt * MAMMOGRAM GENERIC (SCAN ORDER) (06/14/2025) Anatomical Region Laterality Modality Other 06/14/2025 [facility] Scanned SCANNING Final Resu lt documented in this encounter Visit Diagnoses Not on filedocumented in this encounter Additional Health Concerns Assessment Noted Time PHQ-9 Depression Total Score: 7 04/14/20 22 9:18 AM CDT documented as of this encounter Care Teams Second Watch Sergeant Relationship Specialty Start Date End Date Vikram Coronado DO [address] [place] [id number] PCP - General FAMILY PRACTICE 01/27/22 documented as of this encounter
--- OUTSIDE RECORDS SUMMARY | 2025-06-26 00:28 | XMS_ITS | Clinical Summary ---
Author Organization [facility] Address [facility] [place] [address] Care Team Providers Care Manager Reporting Name Role Phone Vikram Coronado DO Primary Care Provider + Allergies No known active allergies Medications dupilumab (DUPIXENT) 300 MG/2ML injection (PEN) Inject 2 mLs (300 mg total) into the skin. Start at 600mg then 300mg every 14 days. 4 Active Ivermectin 1 % Cream 3 Active levocetirizine (XYZAL) 5 MG tablet 3 Active tacrolimus (PROTOPIC) 0.1 % ointment 4 Active spironolactone (ALDACTONE) 100 MG tablet Take 1 tablet (100 mg total) by mouth daily. 5 Active evolocumab (REPATHA SURECLICK) 140 MG/ML injection (PEN) Inject 1 mL (140 mg total) into the skin every 14 (fourteen) days. 5 Active ZOLMitriptan 5 MG TabIndications: Migraine without aura and without status migrainosus, not intractable TKAE 1 TABLET BY MOUTH AT ONSET OF MIGRAINE, MAY REPEAT IN 2 HOURS IF NEEDED. MAX OF 2 TABS IN 24 HR 12 tablet 4 5 Active levothyroxine (SYNTHROID) 25 MCG tabletIndicatio ns:Hypothyroidi sm, unspecified type TAKE 1 TABLET BY MOUTH EVERY DAY 90 tablet 1 5 Active levothyroxine (SYNTHROID) 25 MCG tabletIndicatio ns:Hypothyroidi sm, unspecified type TAKE 1 TABLET BY MOUTH EVERY DAY 90 tablet 1 5 05/30/20 25 Discontinued Active Problems Problem Noted Date Diagnosed Date Atopic dermatitis 10/22/2023 Overview (10/31/2024): Dr Alex ordered Dupixent Rosacea 09/28/2023 Overview (10/31/2024): Dr Alex ordered Ivermectin Acne 04/14/2022 Hyperlipidemia, unspecified hyperlipidemia type 04/14/2022 Hot flashes due to menopause 04/14/2022 Hypothyroidism, unspecified type 04/14/2022 Migraines 04/14/2022 Migraine without aura and wi thout status migrainosus, not intractable 04/14/2022 Anxiety 09/12/2014 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 Encounters Date Type Department Care Team Description 06/20/2025 Scan [facility] Scanned, [facility] 06/14/2025 Scan [facility] Scanned, [facility] Mammogram (SCAN) 05/31/2025 Telephone [facility] [address] [phone] Vikram Coronado DO Radiology Results 05/25/2025 Scan [facility] Scanned, [facility] Ultrasound (SCAN) 05/17/2025 Results Follow-Up [facility] [address] [phone] Vikram Coronado, COLOGUARD (EXACT SCIENCE) 05/03/2025 8:20 AM CDT Office Visit [facility] [address] [phone] Vikram Coronado DO Hyperlipidemia (6 month follow up ); Hypothyroidism (Patient is wanting to discuss most recent labs. ) 05/03/2025 Results Follow-Up [facility] [address] [phone] Vikram Coronado, DO VITAMIN D, 25 OH TOTAL, CBC W/DIFF AUTOMATED, COMPREHENSIVE METABOLIC PANEL, Additional followed-up results: 3 05/03/2025 Travel from Last 3 Months Immunizations Immunization Administration Dates Next Due Fluzone 6 Months+ Quad (0.5 mL Prefilled Syringe ) 05/22/2022 Influenza Adult (Generic) 06/16/2023 Pneumococcal (Prevnar 20) 05/01/2024 Shingrix 09/16/2022,06/12/2022 Tdap (Adacel) 04/14/2022 Family History Medical History Relation Comments Alcohol/Drug Father Cancer Father bladder/ prostat e Hyperlipidemia Father Heart Disease Maternal Grandfather Stroke Maternal Grandmother Alzheimers Mother Arthritis Mother Hyperlipidemia Mother Migraines/Headaches Mother Alcohol Abuse Paternal Grandfather Asthma Sister Hyperlipidemia Sister Mental Health Sister Relation Status Comments Father Alive Maternal Grandfather Maternal Grandmother Mother Paternal Grandfather Sister Social History Tobacco Use Types Packs/Day Years Used Date Smoking Tobacco: Former Cigarettes 0.5 7 0 08/16/1983 - 08/16/1990 Smokeless Tobacco: Never Tobacco Cessation:Counseling Given: Yes Alcohol Use Standard Drinks/Week Comments Not Currently 0 (1 standard drink = 0.6 oz pur e alcohol) PHQ-2 Answer Date Recorded Patient Health Questionnaire-2 Score 0 10/31/2024 Comments No Sex and Gender Information Value Date Recorded Sex Assigned at Female 10/31/2024 8:15 AM CDT Legal Sex Female 12:21 PM CDT Gender Identity Female 10/31/2024 8:36 AM CDT Sexual Orientation Not on file Last Filed Vital Signs Vital Sign Reading Time Taken Comments Blood Pressure 122/78 05/03/2025 8:19 AM CDT Pulse 81 05/03/2025 8:19 AM CDT Temperature 36.4 C (97.5 F) 05/03/2025 8:19 AM CDT Respiratory Rate 16 05/03/2025 8:19 AM CDT Oxygen Saturation 97% 05/03/2025 8:19 AM CDT Inhaled Oxygen Concentration - - Weight 72.1 kg (159 lb) 05/03/2025 8:19 AM CDT Height 160 cm (5' 3) 05/03/2025 8:19 AM CDT Body Mass Index 28.17 05/03/2025 8:19 AM CDT Plan of Treatment Upcoming Encounters Date Type Department Care Team (Late st Contact Info) Description 10/31/2025 8:20 AM CDT Office Visit [facility] Family [facility] Internal Medicine - [id number] [place] [phone] Vikram Coronado, [address] [place] [address] Health Maintenance Due Date Last Done Comments Annual Physical 01/05/1968 Cervical Cancer Screening Pap with HPV Testing (Age 30 to 64) Every 5 Years 1995 Cervical Cancer Screening Pap Smear (Age 30 to 64) Every 3 Years 03/18/2025 03/18/2022, 03/14/2021, 01/03/2020, Additional history exists Influenza Adult (#1) 2025 06/16/2023, 05/22/20 COVID-19 Vaccine (3 - Pfizer risk series) 05/03/2026 07/09/2021, 06/18/2021 Postponed from 08/06/2021 (Patient Refused) Cervical Cancer Screening with HPV 05/03/2026 Postponed from 03/18/2025 (Going to Outside Clinic) RSV Immunization or 60+ Years (1 - Risk 60-74 years 1-dose series) 05/03/2026 Postponed fro m 2025 (Going to Outside Clinic) Mammogram Screening 06/14/2026 06/14/2025, 06/14/2025, 06/21/2024, Additional history exists Colorectal Cancer Screening FIT-DNA (3 Years) 05/25/2028 05/25/2025, 11/17/2021, 11/17/2021 DTaP, Tdap and Td Vaccines (2 - Td or Tdap) 04/14/2032 04/14/2022 Zoster Vaccines Completed 09/16/2022, 06/12/2022 Hepatitis C Completed 01/21/2023 Pneumococcal Vaccine: 50+ Years Completed 05/01/2024 PHQ-2 (Physician [employer]) Completed 10/31/2024 Hepatitis A Vaccines Aged Out No long er eligible based on patient's age to complete this topic Meningococcal B Vaccine Aged Out No l onger eligible based on patient's age to complete this topic Meningococcal Vaccine Aged Out No david jackie eligible based on patient's age to complete this topic RSV Immunizations Under 20 Months Aged Out No longer eligible based on patient's age to complete this topic Procedures Procedure Name Priority Date/Time Associated Diagnosis Comments MAMMOGRAM GENERIC (SCAN ORDER) 06/14/2025 MAMMOGRAM GENERIC (SCAN ORDER) 06/14/2025 COLOGUARD (EXACT SCIENCE) Routine 05/25/2025 6:30 AM CDT Screening for malignant neoplasm of colon ULTRASOUND GENERIC (SCAN ORDER) 05/25/2025 VITAMIN D, 25 OH TOTAL Routine 6:09 AM CDT Vitamin D deficiency Annual physical exam Screening for lipid disorders Screening for endocrine, metabolic and immunity disorder HEMOGLOBIN, GLYCOSYLATED Routine 04/23/2025 6:07 AM CDT Elevated hemoglobin A1c Annual physical exam Screening for lipid disorders Screening for endocrine, metabolic and immunity disorder LIPID PANEL Routine 04/23/2025 6:07 AM CDT Annual physical exam Screening for lipid disorders Screening for endocrine, metabolic and immunity disorder TSH W/REFLEX Routine 04/23/2025 6:07 AM CDT Annual physical exam Screening for lipid disorders Screening for endocrine, metabolic and immunity disorder COMPREHENSIVE METABOLIC PANEL Routine 04/23/2025 6:07 AM CDT Annual physical exam Screening for lipid disorders Screening for endocrine, metabolic and immunity disorder CBC W/DIFF AUTOMATED Routine 04/23/2025 6:07 AM CDT Annual physical exam Screening for lipid disorders Screening for endocrine, metabolic and immunity disorder HEPATITIS C ANTIBODY W/RFX TO HCV RNA Routine 01/21/2023 7:17 AM CDT OUTSIDE CYTOPATH CERV/VAG INTERPRET (PAP) (SCAN ORDER) 03/18/2022 from Last 3 Months or Most Recently Relevant to Health Maintenance Results * MAMMOGRAM GENERIC (SCAN ORDER) (06/14/2025) Only the most recent of2 resultswithin the time period is included. Anatomical Region Laterality Modality Other 06/14/2025 us Doc [facility] Scanned SCANNING Final Resu lt * (ABNORMAL) COLOGUARD (Rapid Action Packaging SCIENCE) (05/25/2025 6:30 AM CDT) COLOGUARD RESULT Positive( A) Negative [facility] (CLIA #:[id number]) Comment: The Cologuard (TM) test was performed on this specimen. POSITIVE TEST RESULT. A positive Cologuard result should be followed with a colonoscopy or visual examination of the colon. The normal value (reference range) for this assay is negative. TEST DESCRIPTION: Composite algorithmic analysis of stool DNA-biomarkers with hemoglobin immunoassay. Quantitative values of individual biomarkers are not reportable and are not associated with individual biomarker result reference ranges. Cologuard is intended for colorectal cancer screening of adults of either sex, 45 years or older, who are at average-risk for colorectal cancer (CRC). Cologuard has been approved for use by the U.S. FDA. The performance of Cologuard was established in a cross sectional study of average-risk adults aged 50-84. Cologuard performance in patients ages 45 to 49 years was estimated by sub-group analysis of near-age groups. Colonoscopies performed for a positive result may find as the most clinically significant lesion: colorectal cancer [4.0%], advanced adenoma (including sessile serrated polyps greater than or equal to 1cm diameter) [20%] or non- advanced adenoma [31%]; or no colorectal neoplasia [45%]. These estimates are derived from a prospective cross-sectional screening study of 10,000 individuals at average risk for colorectal cancer who were screened with both Cologuard and colonoscopy. (Eder Painting al, N Engl J Med 2014;370(14):8425-2342.) Cologuard may produce a false negative or false positive result (no colorectal cancer or precancerous polyp present at colonoscopy follow up). A negative Cologuard test result does not guarantee the absence of CRC or advanced adenoma (pre-cancer). The current Cologuard screening interval is every 3 years. ([place] [employer] Society and U.S. Multi-Society Task Force). Cologuard performance data in a 10,000 patient pivotal study using colonoscopy as the reference method can be accessed at the following location: www.Caterva.com/results. Additional description of the Cologuard test process, warnings and precautions can be found at www.cologuard.com. STOOL STOOL SPECIMEN / Unknown 05/25/2025 6:30 AM CDT 05/26/2025 11:23 AM CDT Vikram Coronado DO BODY FLUIDS AND STOOLS O RDERABLES Final Result [facility] ([address] [facility]) [address] [place] [address], [facility] (CLIA #:[id number]) [address] [place] [address] * ULTRASOUND GENERIC (SCAN ORDER) (05/25/2025) Anatomical Region Laterality Modality Other 05/25/2025 Doc [facility] Scanned SCANNING Final Resu lt * VITAMIN D, 25 OH TOTAL (04/23/2025 6:09 AM CDT) VITAMIN D 25 HYDROXY TOTAL S/P/B 46 30 - 100 ng/mL [facility] Comment: (Note) Vitamin D, 25-Hydroxy reports concentrations of two common forms, 25-OHD2 and 25-OHD3. 25-OHD3 indicates both endogenous production and supplementation. 25-OHD2 is an indicator of exogenous sources such as diet or supplementation. Therapy is based on measurement of Total 25-OHD, with levels <20 ng/mL indicative of Vitamin D deficiency, while levels between 20 ng/mL and 30 ng/mL suggest insufficiency. Optimal levels are > or = 30 ng/mL. For additional information, please refer to http://education.Instant API/faq/PSM440 (This link is being provided for information/educational purposes only.) VITAMIN D 25 HYDROXY D3 S/P/B 40 ng/mL [facility] Comment:Reference range: Not established VITAMIN D 25 HYDROXY D2 S/P/B 6 ng/mL [facility] Comment: (Note) Reference range: Not established This test was developed and its analytical performance characteristics have been determined by [facility]. It has not been cleared or approved by the US Food and Drug Administration. This assay has been validated pursuant to the CLIA regulation and is used for Clinical purposes. [facility] [address] [place] [address],[address] [place] [address] Sergio Pereira MD, PhD See Note 1 Note 1 For additional information, please refer to http://Altavoz.Instant API/faq/BAO736 (This link is being provided for informational/ educational purposes only.) 04/23/2025 6:09 AM CDT 04/23/2025 6:09 AM CDT Narrative [facility] [facility] - 04/25/2025 8:55 PM CDT FASTING:YES FASTING: YES Resulting Agency Comment Performing Organization Information: Site ID: [id number] Name: [facility] Address: [address] [place] [address], [address] [phone] Director: Sergio Pereira MD,PhD us Vikram Coronado DO LABORATORY Final Re sult [facility] [address] [place] [address], [address] [address], * (ABNORMAL) TSH W/REFLEX (04/23/2025 6:07 AM CDT) TSH 4.52(H) 0.40 - 4.50 mIU/L [facility] FREE T4 1.1 0.8 - 1.8 ng/dL [facility] 04/23/2025 6:07 AM CDT 04/23/2025 6:08 AM CDT Narrative [facility] - 04/24/2025 5:29 AM CDT FASTING:YES FASTING: YES Resulting Agency Comment Performing Organization Information: Site ID: [id number] Name: [facility] Address: [address] [address] Director: Juliane Reed MD us Vikram Coronado DO LABORATORY Final Re sult Performing Organization Address [facility] Co de Phone Number [facility] [address] [address], [place] * (ABNORMAL) HEMOGLOBIN, GLYCOSYLATED (04/23/2025 6:07 AM CDT) HGB A1C 5.9(H) <5.7 % of total Hgb [facility] [place], [place] Comment: For someone without known diabetes, a hemoglobin A1c value between 5.7% and 6.4% is consistent with prediabetes and should be confirmed with a follow-up test. For someone with known diabetes, a value <7% indicates that their diabetes is well controlled. A1c targets should be individualized based on duration of diabetes, age, comorbid conditions, and other considerations. This assay result is consistent with an increased risk of diabetes. Currently, no consensus exists regarding use of hemoglobin A1c for diagnosis of diabetes for children. 04/23/2025 6:07 AM CDT 04/23/2025 6:08 AM CDT Narrative [facility] [place] [facility] - 04/24/2025 5:29 AM CDT FASTING:YES FASTING: YES Resulting Agency Comment Performing Organization Information: Site ID: [id number] Name: [facility] Address: [address] [place] [address] Director: Juliane Reed us Vikram Coronado DO LABORATORY Final Re sult Performing Organization Address [facility]/ZIP Co de Phone Number [facility] [place] [facility] [place] [address] [place] [address], [place] * COMPREHENSIVE METABOLIC PANEL (04/23/2025 6:07 AM CDT) Pathologist [facility] [place] GLUCOSE 88 65 - 99 mg/dL [facility] Comment: Fasting reference interval BUN 20 7 - 25 mg/dL [facility] CREATININE S/P/B 0.85 0.50 - 1.05 mg/dL [facility] GFR ESTIMATE 78 > OR = 60 mL/min/1. 73m2 [facility] BUN CREATININE RATIO SEE NOTE: - (calc) [facility] Comment: Not Reported: BUN and Creatinine are within reference range. SODIUM S/P/B 140 135 - 146 mmol/L [facility] POTASSIUM S/P/B 4.4 3.5 - 5.3 mmol/L [facility] CHLORIDE S/P/B 104 98 - 110 mmol/L [facility] CO2 29 20 - 32 mmol/L [facility] [place] [facility] CALCIUM S/P/B 9.6 8.6 - 10.4 mg/dL [facility] [place] [facility] TOTAL PROTEIN S/P/B 7.1 6.1 - 8.1 g/dL [facility] [place] [facility] ALBUMIN S/P/B 4.7 3.6 - 5.1 g/dL [facility] GLOBULIN 2.4 1.9 - 3.7 g/dL (calc) [facility] ALBUMIN/GLOBULI N RATIO 2.0 1.0 - 2.5 (calc) [facility] BILIRUBIN TOTAL S/P/B 0.6 0.2 - 1.2 mg/dL [facility] ALKALINE PHOSPHATASE S/P/B 59 37 - 153 U/L [facility] AST 12 10 - 35 U/L [facility] ALT 14 6 - 29 U/L [facility] 04/23/2025 6:07 AM CDT 04/23/2025 6:08 AM CDT Narrative [facility] [place] [facility] - 04/24/2025 5:29 AM CDT FASTING:YES FASTING: YES Resulting Agency Comment Performing Organization Information: Site ID: [id number] Name: [employer] Address: [address] [address] Director: Juliane Reed MD us Vikram Coronado DO LABORATORY Final Re sult [facility] [place] [facility] [address] [address], [place] * (ABNORMAL) LIPID PANEL (04/23/2025 6:07 AM CDT) CHOLESTEROL 294(H) <200 mg/dL [facility] HDL 49(L) > OR = 50 mg/dL [facility] TRIGLYCERIDES 195(H) <150 mg/dL [facility] LDL (CALCULATED) 208(H) mg/dL (calc) [facility] Comment: LDL-C levels > or = 190 mg/dL may indicate familial hypercholesterolemia (FH). Clinical assessment and measurement of blood lipid levels should be considered for all first degree relatives of patients with an FH diagnosis. LDL Cholesterol (LDL-C) levels > or = 300 mg/dL may indicate homozygous familial hypercholesterolemia (HoFH). Untreated, these extremely high LDL-C levels can result in premature CV events and mortality. Patients should be identified early and provided appropriate interventions to reduce the cumulative LDL-C burden from . For questions about testing for familial hypercholesterolemia, please call [facility] Client Services at [email or web address]. Lachelle T, et al. J National Lipid Association Recommendations for Patient-Centered Management of Dyslipidemia: Part 1 Journal of Clinical Lipidology 2015;9(2), 129-169. Scarlett Devine et al. (2014). Homozygous familial hypercholesterolaemia: new insights and guidance for clinicians to improve detection and clinical management. Heart Journal, 35(32), 8837-1974. Reference range: <100 Desirable range <100 mg/dL for primary prevention; <70 mg/dL for patients with CHD or diabetic patients with > or = 2 CHD risk factors. LDL-C is now calculated using the Galo-Oscar calculation, which is a validated novel method providing better accuracy than the Friedewald equation in the estimation of LDL-C. Galo HOWE et al. [place]. 2013;310(19): 0101-4781 (http://education.Instant API/faq/VWZ949) CHOL/HDL RATIO 6.0(H) <5.0 (calc) [facility] NON HDL CHOLESTEROL 245(H) <130 mg/dL (calc) [facility] Comment: Non-HDL level > or = 220 is very high and may indicate genetic familial hypercholesterolemia (FH). Clinical assessment and measurement of blood lipid levels should be considered for all first-degree relatives of patients with an FH diagnosis. For patients with diabetes plus 1 major ASCVD risk factor, treating to a non-HDL-C goal of <100 mg/dL (LDL-C of <70 mg/dL) is considered a therapeutic option. 04/23/2025 6:07 AM CDT 04/23/2025 6:08 AM CDT Narrative [facility] - 04/24/2025 5:29 AM CDT FASTING:YES FASTING: YES Resulting Agency Comment Performing Organization Information: Site ID: [id number] Name: [facility] Address: [address] [place] [address] Director: Juliane Reed MD us Vikram Coronado DO LABORATORY Final Re sult [facility] [address] [address], [place] * (ABNORMAL) CBC W/DIFF AUTOMATED (04/23/2025 6:07 AM CDT) WBC 4.6 3.8 - 10.8 Thousand/ uL [facility] RBC 4.89 3.80 - 5.10 Million/u L [facility] HGB 13.6 11.7 - 15.5 g/dL [facility] HCT 43.5 35.0 - 45.0 % [facility] MCV 89.0 80.0 - 100.0 fL [facility] MCH 27.8 27.0 - 33.0 pg [facility] MCHC 31.3(L) 32.0 - 36.0 g/dL [facility] Comment: For adults, a slight decrease in the calculated MCHC value (in the range of 30 to 32 g/dL) is most likely not clinically significant; however, it should be interpreted with caution in correlation with other red cell parameters and the patient's clinical condition. RDW 14.3 11.0 - 15.0 % [facility] PLT 182 140 - 400 Thousand/ uL [facility] MPV 11.4 7.5 - 12.5 fL [facility] ABS. NEUTROPHILS 2,015 1,500 - 7,800 cells/uL [facility]. LYMPHOCYTES 2,075 850 - 3,900 cells/uL [facility] ABS. MONOCYTES 281 200 - 950 cells/uL [facility] ABS. EOSINOPHILS 110 15 - 500 cells/uL [facility] ABS. BASOPHILS 120 0 - 200 cells/uL [facility] SEG NEUTROPHILS 43.8 % [facility] LYMPHOCYTES 45.1 % [facility] MONOCYTES 6.1 % [facility] EOSINOPHILS 2.4 % [facility] BASOPHILS 2.6 % [facility] 04/23/2025 6:07 AM CDT 04/23/2025 6:08 AM CDT Narrative [facility] [place] [facility] - 04/24/2025 5:29 AM CDT FASTING:YES FASTING: YES Resulting Agency Comment Performing Organization Information: Site ID: [place] Name: [employer] [facility] Address: [address] [place] [address] Director: Juliane Reed MD Vikram Coronado DO LABORATORY Final Re sult [facility] [address] [address], [place] * HEPATITIS C ANTIBODY W/RFX TO HCV RNA (01/21/2023 7:17 AM CDT) HEPATITIS C AB NON-REACT ZOE NON-REACT ZOE [facility] SIGNAL TO CUTOFF 0.10 <1.00 [facility] Comment: HCV antibody was non-reactive. There is no laboratory evidence of HCV infection. In most cases, no further action is required. However, if recent HCV exposure is suspected, a test for HCV RNA (test code 21373) is suggested. For additional information please refer to http://education.Pumodo/faq/XLO55l6 (This link is being provided for informational/ educational purposes only.) 01/21/2023 7:17 AM CDT 01/21/2023 7:17 AM CDT Narrative [facility] - 01/26/2023 10:56 PM CDT FASTING:YES FASTING: YES Resulting Agency Comment Performing Organization Information: Site ID: [id number] Name: [facility] Address: [address] [address] Director: Juliane Reed MD us Vikram Coronado DO LABORATORY Final Re sult [facility] [address] [address], * PAP SMEAR (03/18/2022) 03/18/2022 Narrative 03/18/2022 Ordered by an unspecified provider. us Documents Scanned SCANNING Final Result from Last 3 Months or Most Recently Relevant to Health Maintenance Insurance SHAR MIKY Care Teams Manager Reporting Relationship Specialty Start Date End Date Vikram Coronado DO [address] [place] [id number] PCP - General FAMILY PRACTICE 01/27/22
--- OUTSIDE RECORDS SUMMARY | 2025-06-26 00:28 | XMS_ITS | Encounter Summary ---
Author Organization [facility] Address [address] [place] [address] Care Team Providers Care Licensed Psychologist Director Name Role Phone Unavailable Primary Care Provider Unavailabl e Encounter Details Date Type Department Care Team (Late st Contact Info) Description 06/28/2023 Lab Requisition [facility] - DermPath Lab [address] [place], [place] [address] Lela Alex MD [address] [facility] 3 [place] [address] Social History Tobacco Use Types Packs/Day Years Used Date Smoking Tobacco: Never Assessed Comments Unknown Sex and Gender Information Value Date Recorded Sex Assigned at Not on file Legal Sex Female 10:05 AM PRODUCT ACCOUNTANT Gender Identity Not on file Sexual Orientation Not on file documented as of this encounter Plan of Treatment Not on file documented as of this encounter Procedures Procedure Name Priority Date/Time Associated Diagnosis Comments DERMATOPATHOLOGY Routine 06/28/2023 9:52 AM PRODUCT ACCOUNTANT documented in this encounter Results * DERMATOPATHOLOGY (06/28/2023 9:52 AM PRODUCT ACCOUNTANT) Case Report Dermatopathology Report Case: [id number] Authorizing Provider: Lela Alex MD Collected: 06/28/2023 09:52 AM Ordering Location: [facility] DermPath Lab Received: 06/30/2023 07:41 AM Pathologist: Nelia Murray MD Specimen: Skin, right abdomen 3 1:32 PM PRODUCT ACCOUNTANT DERMATOPATHOLOGY LABORATORY Final Diagnosis Specimen A. 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 The specimen consists of a punch biopsy measuring 4x3x5 mm. Jar 0. 3 1:32 PM [facility] DERMATOPATHOLOGY LABORATORY Microscopic Description Specimen A. SKIN, right abdomen: There are lymphocytes around blood vessels and histiocytes between collagen bundles some of which are arranged in a palisade. The collagen is focally altered. 3 1:32 PM [facility] DERMATOPATHOLOGY LABORATORY Disclaimer An external and internal positive and negative controls are appropriate for the histochemical, immunohistochemical and immunofluorescence stain(s) in this case (if any), except where stated explicitly. The performance characteristics of the stain(s) cited in this report were developed and its performance characteristic determined by the Dermatopathology Laboratory at [facility], directed by Dr. Scarlett Sanderson. These tests need not be, and therefore are not, approved by the [place] Food and Drug Administration. The tests are used for clinical purposes. Billing Codes Specimen Charges Stain Charges 20517 1 3 1:32 PM [facility] DERMATOPATHOLOGY LABORATORY Embedded Images 3 1:32 PM [facility] DERMATOPATHOLOGY LABORATORY Pathology/Cytolo gy TISSUE SPECIMEN FROM SKIN / Unknown 06/28/2023 9:52 AM PRODUCT ACCOUNTANT 06/30/2023 7:41 AM PRODUCT ACCOUNTANT us Lela Alex MD LAB - PATHOLOGY/CYTOLOGY ORD ERABLES Final Result DERMATOPATHOLOGY LABORATORY [facility] - Department of Dermatology [address], [address] [phone] documented in this encounter Visit Diagnoses Not on filedocumented in this encounter
--- OUTSIDE RECORDS SUMMARY | 2025-06-26 00:28 | XMS_ITS | Encounter Summary ---
Author Organization [facility] Address [address] [place] [address] Care Team Providers Care Plc Programmer Name Role Phone Vikram Coronado DO Primary Care Provider + Encounter Details Date Type Department Care Team (Latest Contact Info) Description 06/20/2025 Scan HEALTH INFO SRVCS Scanned, Doc Med Group Social History Tobacco Use Types Packs/Day Years [...] Description 10/31/2025 8:20 AM CDT Office Visit [facility] Family & Internal Medicine [address] [phone] Vikram Coronado DO [address] [place] [address] documented as of this encounter Visit Diagnoses Not on filedocumented in this encounter Additional Health Concerns Assessment Noted Time PHQ-9 Depression Total Score: 7 04/14/20 22 9:18 AM CDT documented as of this encounter Care Teams Plc Programmer Relationship Specialty Start Date End Date Vikram Coronado DO [address] [place] [address] PCP - General FAMILY PRACTICE 01/27/22 documented as of this encounter
--- NOTE | 2025-06-26 12:19 | WPDHPUPDATE1 ---
History and Physical Update Update Date/Time: 06/26/25 12:19 History and Physical has been reviewed, including an updated exam of the patient. There are NO changes in the patient's condition. Risks, benefits, and alternatives have been discussed and questions answered. Patient agrees to proceed with procedure.
[2025-06-26] MEDS: LIDO 1%/EPINEPHRINE 1:100,000 50 ML VIAL (12:54)
--- NOTE | 2025-06-26 12:57 | S_PTH ---
PATIENT: Liss Yuen LOC: [facility] U#:[id number] AGE/SX: 60/F ROOM: RE06/26/[address]: Mike Jimenez MD : 1965 BED: DIS: 06/26/2025 SPEC #: [id number] RECD: 06/26/25 13:09 STATUS: SARANYA REQ #: [id number] ABELARDO: 06/26/25 12:[address]: Mike Jimenez DEPT: [facility] Surgical RECD BY: Acosta Green ENTERED: 06/26/25 13:11 SP TYPE: Surgical OTHR DR: Vikram Coronado, DO Tissues: A - Mass Procedures: Hematoxylin and Eosin Stain Gross and Microscopic Level 3
--- NOTE | 2025-06-26 13:24 | W.PM.PROC2 ---
Procedure Note - Detailed Date of Procedure 06/26/25 Pre-op Diagnosis Left posterior thigh subq mass Post-op Diagnosis Other Procedure Performed Left posterior thigh lipoma Surgeon Mike Jimenez MD Anesthesia Local Indications patient is a 60-year-old female presented with a slowly enlarging subcutaneous mass in the posterior left upper thigh region. Clinically it was consistent with a benign lipomatous mass. She presents now for excision of the mass. 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 It measured 3.5x2.5x1cm. Description of Procedure After informed consent was obtained patient brought to the operating room she was placed prone on the operating table. The area the left posterior thigh was then prepped and draped usual sterile fashion. A time-out was then performed correctly identifying the patient as well as procedure to be performed. She was not given any perioperative IV antibiotics is no IV was started. Site marking was verified. 1% lidocaine mixed with 0.5% Marcaine with some epinephrine was injected around the subcutaneous mass for local anesthetic effect. I then made a transverse incision over the top of the mass with the scalpel after adequate anesthesia had been achieved. Dissection was carried down through the dermis skin with a scalpel and then utilizing sharp scissor dissection I dissected the subcutaneous mass from the surrounding tissues. The lipomatous mass had a fibrous component but still all looked benign. Once I completely excised out the mass from the surrounding subcutaneous with sharp dissecting scissors I then measured it and it was 3.5x2.5x1cm. It was sent to pathology for examination. Hemostasis in the wound was then achieved electrocautery. The was then irrigated sterile saline solution hemostasis was good. The wound was then closed utilizing interrupted 3-0 Vicryl sutures in multiple layers of subcutaneous tissues. The skin edges were then approximated utilizing a running subcuticular 4-0 Monocryl suture. The incision was then cleaned and then skin glue was applied. The patient tolerated the procedure well no complications. All sponges, needles, and instrument counts were correct at the end procedure. EBL was _2__cc. The patient was awakened and taken to recovery in stable and satisfactory condition. Implants none Estimated Blood Loss 2 Drains No Packing No Pathology Yes ( lipomatous mass sent to pathology) Complications No immediate complications Condition Stable Disposition Same day [facility] Billing Surgery - Charge Forward: Surgery Billing
== END 2025-06-26 13:37 | disposition home or self-care (01) ==
PROVIDERS: PCP Student in an Organized Health Care Education/Training Program; Visit Provider Surgery
PROC: (CPT 27337; principal; 2025-06-26 12:00)
DX: D17.24 Benign lipomatous neoplasm of skin and subcutaneous tissue of left leg (principal)
CPT/HCPCS: 27337; 88304; A9270; J2004

== ENCOUNTER 2025-08-02 00:38 | Day surgery (SDC) | payer OTHER, SELFPAY ==
[2025-07-16 15:12] VITALS: BMI 28.3
--- OUTSIDE RECORDS SUMMARY | 2025-08-02 00:41 | XMS_ITS | Clinical Summary ---
Author Organization [facility] Address [address] [place] [place] [address] Care Team Providers Care Cut Off Man Name Role Phone Unavailable Primary Care Provider Unavailabl e Source Comments [facility],non-owned Affiliates and Associated Physician Practices is amultiple site organization consisting of ambulatory clinics and hospital sitesin [place], [place], [place] and [place]. This disclosure is being madepursuant to the Care Everywhere program and may not contain all information available regarding this patient. Last updated 18.[facility] nap- Naturally Attached Parents Social History Tobacco Use Types Packs/Day Years Used Date Smoking Tobacco: Never Assessed Comments Unknown Sex and Gender Information Value Date Recorded Sex Assigned at Not on file Legal Sex Female 10:05 AM SPECIAL EDUCATION RESOURCE ROOM TEACHER Gender Identity Not on file Sexual Orientation [...] DEPRESSION SCREENING 08/16/2024 COVID-19 VACCINE (1 - 2024-2 6 season) 2025 INFLUENZA VACCINE (#1) 2025 Respiratory [...] age to complete this topic Insurance [employer] [facility] SELF PAY NO INSURANCE Member Subscriber Plan / Payer (Ef fective for All Dates) Name:Liss Pereira Member ID:Not on file Relation to Subscriber:Not on file Name:LISS PEREIRA Subscriber ID:Not on file (Home) Address: [address] [place] [address] Payer ID:Not on file Group ID:Not on file Type:Self Pay Address: [place], [place]
--- OUTSIDE RECORDS SUMMARY | 2025-08-02 00:41 | XMS_ITS | Encounter Summary ---
Author Organization [facility] Address [address] [facility] [place] [address] Care Team Providers Care Mica Patcher Name Role Phone Unavailable Primary Care Provider Unavailabl e Encounter Details Date Type Department Care Team (Late st Contact Info) Description 06/28/2023 Lab Requisition [facility] - DermPath Lab [address] [facility] [place] [address] Lela Alex MD [address] [facility] 3 [place] [address] Social History Tobacco Use Types Packs/Day Years Used Date Smoking Tobacco: Never Assessed Comments Unknown Sex and Gender Information Value Date Recorded Sex Assigned at Not on file Legal Sex Female 10:05 AM NUTRITIONAL SERVICES DIRECTOR Gender Identity Not on file Sexual Orientation Not on file documented as of this encounter Plan of Treatment Not on file documented as of this encounter Procedures Procedure Name Priority Date/Time Associated Diagnosis Comments DERMATOPATHOLOGY Routine 06/28/2023 9:52 AM NUTRITIONAL SERVICES DIRECTOR documented in this encounter Results * DERMATOPATHOLOGY (06/28/2023 9:52 AM NUTRITIONAL SERVICES DIRECTOR) Case Report Dermatopathology Report Case: [id number] Authorizing Provider: Lela Alex MD Collected: 06/28/2023 09:52 AM Ordering Location: [facility] DermPath Lab Received: 06/30/2023 07:41 AM Pathologist: Nelia Murray MD Specimen: Skin, right abdomen 3 1:32 PM NUTRITIONAL SERVICES DIRECTOR DERMATOPATHOLOGY LABORATORY Final Diagnosis Specimen A. 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 The specimen consists of a punch biopsy measuring 4x3x5 mm. Jar 0. 3 1:32 PM [facility] DERMATOPATHOLOGY LABORATORY Microscopic Description Specimen A. SKIN, right abdomen: There are lymphocytes around blood vessels and histiocytes between collagen bundles some of which are arranged in a palisade. The collagen is focally altered. 1:32 PM [facility] DERMATOPATHOLOGY LABORATORY Disclaimer An external and internal positive and negative controls are appropriate for the histochemical, immunohistochemical and immunofluorescence stain(s) in this case (if any), except where stated explicitly. The performance characteristics of the stain(s) cited in this report were developed and its performance characteristic determined by the Dermatopathology Laboratory at [facility], directed by Dr. Scarlett Sanderson. These tests need not be, and therefore are not, approved by the [place] Food and Drug Administration. The tests are used for clinical purposes. Billing Codes Specimen Charges Stain Charges 66136 1 3 1:32 PM [facility] DERMATOPATHOLOGY LABORATORY Embedded Images 3 1:32 PM [facility] DERMATOPATHOLOGY LABORATORY Pathology/Cytolo gy TISSUE SPECIMEN FROM SKIN / Unknown 06/28/2023 9:52 AM NUTRITIONAL SERVICES DIRECTOR 06/30/2023 7:41 AM NUTRITIONAL SERVICES DIRECTOR us Lela Alex MD LAB - PATHOLOGY/CYTOLOGY ORD ERABLES Final Result DERMATOPATHOLOGY LABORATORY [facility] - Department of Dermatology [facility] Medicine [address] [place] [address], [address] [phone] documented in this encounter Visit Diagnoses Not on filedocumented in this encounter
--- OUTSIDE RECORDS SUMMARY | 2025-08-02 00:41 | XMS_ITS | Encounter Summary ---
Author Organization [facility] Address [address] [place] [address] Care Team Providers Care Manager Safe Name Role Phone Vikram Coronado DO Primary Care Provider + Encounter Details Date Type Department Care Team (Late Contact Info) Description 11/12/2023 MyChart Message Enc [facility] Family & Internal Medicine [address] [phone] Vikram Coronado DO [facility] [place] [address] Repatha Social History Tobacco Use Types Packs/Day [...] Description 10/31/2025 8:20 AM CDT Office Visit [facility] Family & Internal [address] [phone] Vikram Coronado DO [address] [place] [address] documented as of this encounter Visit Diagnoses Not on filedocumented in this encounter Additional Health Concerns Infection Onset Date Last Indicated Resolved Time Respiratory Rule Out 01/03/2025 01/03/2025 025 12:35 PM CDT Assessment Noted Time PHQ-9 Depression Total Score: 7 04/14/20 22 9:18 AM CDT documented as of this encounter Care Teams Manager Safe Relationship Specialty Start Date End Date Vikram Coronado DO [address] [place] [address] PCP - General FAMILY PRACTICE 01/27/22 documented as of this encounter
[2025-08-02 12:36] VITALS: BP 133/85; PULSE 87; RESP 18; TEMP 36.1; O2SAT 99; BMI 27.6
[2025-08-02] MEDS: LACTATED RINGERS 1,000 ML 150 ML IV CONT (12:45)
--- NOTE | 2025-08-02 13:08 | WPDANESEPPF ---
Anes - Initial Pre Proc Eval Procedure: Operation Date: 08/02/25 14:30 Proposed Procedures p Screening Colonoscopy - Fernie Guerra MD Date/Time: 08/02/25 13:08 Surgeon: Fernie Guerra MD Pre Op Diagnosis: positive cologuard/screening Patient Data Age: 60 Gender: F Height: 1.6 m Weight: 70.9 kg Last Vital Signs Temp 97 F L 08/02/25 12:36 Pulse 87 08/02/25 12:36 Resp 18 08/02/25 12:36 BP 133/85 08/02/25 12:36 Pulse Ox 99 08/02/25 12:36 O2 Del Method Room Air 08/02/25 12:36 Allergies Allergy/AdvReac Type Severity Reaction Status Date / Time No Known Allergies Allergy Verified 08/02/25 12:35 Home Medications ?Medication ?Instructions ?Recorded ?Confirmed ?Type levothyroxine 25 mcg tablet 25 mcg PO DAILY #90 tabs 04/08/20 08/02/25 Rx zolmitriptan 5 mg tablet (Zomig) 5 mg PO .COMPLEX #54 tabs 11/04/20 07/16/25 Rx ibuprofen 200 mg tablet 200 - 400 mg PO Q6H PRN Headache 05/10/22 07/16/25 History ivermectin 1 % topical cream 1 applic topical HS 11/08/24 08/02/25 History lactobacillus combination no.4 3 3,000 mmu cells PO DAILY 11/08/24 08/02/25 History billion cell capsule (Probiotic) spironolactone 100 mg tablet 100 mg PO DAILY 11/08/24 08/02/25 History tacrolimus 0.1 % topical ointment 1 applic topical HS 11/08/24 08/02/25 History evolocumab 140 mg/mL subcutaneous 140 mg subcut MONTHLY #2 mL 04/25/25 07/16/25 Rx pen injector (Meet Vásquez) flaxseed oil 13.9 gram/15 mL oral 13.9 g PO DAILY 06/21/25 08/02/25 History liquid magnesium L-threonate 48 mg 144 mg PO DAILY 06/21/25 08/02/25 History magnesium (667 mg) capsule (MagMind) calcium citrate 1,000 mg tablet 500 mg PO DAILY 07/10/25 08/02/25 History dupilumab 300 mg/2 mL subcutaneous 300 mg subcut .COMPLEX 07/10/25 07/16/25 History pen injector (Dupixent) Patient hx anesthesia problems: none Family hx anesthesia problems: none Results Review: All pre-operative results and documents have been reviewed as part of the pre-operative evaluation. [facility] Past Medical History Medical History Uterine polyp Migraine Anxiety Hypothyroidism Mixed hyperlipidemia Surgical History Surgical History Hx of local excision of skin lesion Left posterior thigh lipoma 06/26/2025 Dr. Jimenez History of hernia repair Family History Family History Father Family history of mental disorder Family history of malignant neoplasm of urinary bladder Sibling Family history of mental disorder Mother Family history of cardiovascular disease Family history of Alzheimer's disease Grandparent Family history of cardiovascular disease Cerebrovascular accident Other Hypertension Social History Social History Social History: Surrogate medical decision maker: Jose Yuen, spouse. Code status: Full code. Smoking packs per day: 0.5 Smoking cigarettes per day: 10.0 Years smoked: 6 Smoking pack-years: 3.00 Smoking status: Former smoker Tobacco type: cigarettes Second hand tobacco smoke exposure: No Smoking end date: 06/21/90 Alcohol intake: never Substance use: never Lack of Transportation: No Lack of Food: Never True Current Housing: I Have Housing Concerned About Future Housing: No Difficulty Paying Gas/Electric Bills: No Difficulty Paying for Meds: No Currently Unemployed: No Education: Associate Degree Difficulty w/ Childcare or Family Care: No Living arrangements: with family Additional living arrangements comments: Lives in [place] with and a cat. 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 Spiritual care concerns: No Anes - Eval Final PreProcedure Day of Procedure 08/02/25 13:08 Patient weight: normal Lungs: normal air movement Airway: Mallampati scale class II Neurological: alert and oriented Last oral intake: >/= 8 hours ASA classification: II Emergent: no Anesthetic plan: proceed Anesthesia type and monitoring: general GIVS and standard monitoring Results Review: All pre-operative results and documents have been reviewed as part of the pre-operative evaluation. Hypothyroidism, pt active w walking treadmill, no cp or sob. Informed Consent: The patient's anesthetic plan and its attendant risks and benefits were discussed with the patient/family/POA. Questions were solicited and answers provided to the satisfaction of the patient/family/POA.
--- NOTE | 2025-08-02 13:42 | P.HP_ITS ---
History of Present Illness History of Present Illness Consent: Risks, benefits, and alternatives have been discussed and questions answered. Patient agrees to proceed with procedure. Chief complaint: positive cologuard/screening Narrative: Liss Yuen is a 60 year old female here for first colonoscopy, + cologuard Review of Systems Review of Systems: All systems reviewed & are unremarkable except as noted in HPI and below PMFSH Past Medical History Medical History (Updated 08/02/25 @ 13:42 by Fernie Guerra MD) Positive colorectal cancer screening using Cologuard test Uterine polyp Migraine Anxiety Hypothyroidism Mixed hyperlipidemia Surgical History Surgical History Hx of local excision of skin lesion Left posterior thigh lipoma 06/26/2025 Dr. Jimenez History of hernia repair Family History Family History Father Family history of mental disorder Family history of malignant neoplasm of urinary bladder Sibling Family history of mental disorder Mother Family history of cardiovascular disease Family history of Alzheimer's disease Grandparent Family history of cardiovascular disease Cerebrovascular accident Other Hypertension Social History Social History Social History: Surrogate medical decision maker: Jose Yuen, spouse. Code status: Full code. Smoking packs per day: 0.5 Smoking cigarettes per day: 10.0 Years smoked: 6 Smoking pack-years: 3.00 Smoking status: Former smoker Tobacco type: cigarettes Second hand tobacco smoke exposure: No Smoking end date: 06/21/90 Alcohol intake: never Substance use: never Lack of Transportation: No Lack of Food: Never True Current Housing: I Have Housing Concerned About Future Housing: No Difficulty Paying Gas/Electric Bills: No Difficulty Paying for Meds: No Currently Unemployed: No Education: Associate Degree Difficulty w/ Childcare or Family Care: No Living arrangements: with family Additional living arrangements comments: Lives in [place] with and a cat. 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 Spiritual care concerns: No Meds Home Medications and Allergies Home Medications ?Medication ?Instructions ?Recorded ?Confirmed ?Type levothyroxine 25 mcg tablet 25 mcg PO DAILY #90 tabs 0 04/08/20 08/02/25 Rx zolmitriptan 5 mg tablet (Zomig) 5 mg PO .COMPLEX #54 tabs 11/04/20 07/16/25 Rx ibuprofen 200 mg tablet 200 - 400 mg PO Q6H PRN Head ache 05/10/22 07/16/25 History ivermectin 1 % topical cream 1 applic topical HS 11/0808/02/25 History lactobacillus combination no.4 3 3,000 mmu cells PO DA KRISTOFER 11/08/24 08/02/25 History billion cell capsule (Probiotic) spironolactone 100 mg tablet 100 mg PO DAILY 11/08/24 08/02/25 History tacrolimus 0.1 % topical ointment 1 applic topical HS 11/08/24 08/02/25 History evolocumab 140 mg/mL subcutaneous 140 mg subcut MONTHL Y #2 mL 04/25/25 07/16/25 Rx pen injector (OwingoathRUNformick) flaxseed oil 13.9 gram/15 mL oral 13.9 g PO DAILY 02/0708/02/25 History liquid magnesium L-threonate 48 mg 144 mg PO DAILY 06/21/25 1 10/03/24 History magnesium (667 mg) capsule (MagMind) calcium citrate 1,000 mg tablet 500 mg PO DAILY 08/02/25 History dupilumab 300 mg/2 mL subcutaneous 300 mg subcut .COMP JOANNE 07/10/25 07/16/25 History pen injector (Dupixent) Allergies Allergy/AdvReac Type Severity Reaction Status Date / Time No Known Allergies Allergy Verified 08/02/25 12:35 Vital Signs Vital Signs - 24 hr 08/02/25 12:36 Temperature 97 F L Pulse Rate 87 Respiratory Rate 18 Blood Pressure 133/85 Pulse Oximetry 99 Oxygen Delivery Room Air Exam Const: General: comfortable and no acute distress HENMT: Face/Nose/Sinus: Normal nares present Eyes: General: appearance normal, both eyes and all related structures Neck: Neck: no JVD Resp: Auscultation: clear to auscultation bilaterally Cardio: Rate: regular rate Rhythm: regular rhythm GI: Inspection: non-distended GI Palp: Yes Soft to palpation Skin: General skin exam: normal color Psych: Mental Status: mental status grossly normal Assessment and Plan Assessment and plan (1) Positive colorectal cancer screening using Cologuard test: Code(s): R19.5 - Other fecal abnormalities Status: Acute Assessment and Plan: colonoscopy
[2025-08-02 14:04] VITALS: BP 100/68; PULSE 80; RESP 21; O2SAT 97
--- NOTE | 2025-08-02 14:05 | S_PTH ---
PATIENT: Liss Yuen LOC: [facility]#:[id number] AGE/SX: 60/F ROOM: RE08/02/[address]: Fernie Guerra MD : 1965 BED: DIS: 08/02/2025 SPEC #: [id number] RECD: 08/02/25 14:19 STATUS: SARANYA REJeri #: [id number] ABELARDO: 08/02/25 14:[address]: Fernie Guerra DEPT: [facility] Surgical RECD BY: Jessika Espinoza ENTERED: 08/02/25 14:20 SP TYPE: Surgical OTHR DR: Vikram Coronado, DO Tissues: A - Colon Polypectomy B - Colon Polypectomy Procedures: Hematoxylin and Eosin Stain Gross and Microscopic Level 4
[2025-08-02 14:14] VITALS: BP 101/70; PULSE 72; RESP 20; O2SAT 100
== END 2025-08-02 14:31 | disposition home or self-care (01) ==
PROVIDERS: PCP Student in an Organized Health Care Education/Training Program; Referring Provider Student in an Organized Health Care Education/Training Program; Visit Provider Internal Medicine Gastroenterology
PROC: 0DJD8ZZ Inspection of Lower Intestinal Tract, Via Natural or Artificial Opening Endoscopic (ICD-10-PCS; CPT 45378; principal; 2025-08-02 14:30)
DX: Z12.11 Encounter for screening for malignant neoplasm of colon (principal); D12.2 Benign neoplasm of ascending colon; D12.5 Benign neoplasm of sigmoid colon; R19.5 Other fecal abnormalities; K64.8 Other hemorrhoids; Z87.891 Personal history of nicotine dependence
CPT/HCPCS: 45380; 45385; 45381; 88305; J2003; J2704; J7120